=== PATIENT | male | born 1975 | race African-American/Black ===

== ENCOUNTER 2017-01-24 20:06 | Emergency (ER) | payer OTHER ==
[2017-01-24 20:26] VITALS: BP 148/87
--- NOTE | 2017-01-24 20:57 | ER Document Report ---
ED Medical Screen (RME) - General Chief Complaint: Chest Pain Stated Complaint: CHEST PAIN, SHORT OF BREATH Time seen by provider: 20:55 Mode of Arrival: Wheelchair Information source: Patient Notes: 42-year-old male presents to ED for chest pain since about 2:00 with fever and vomiting blood after an endoscopy today. He's also had chills and shortness of breath with a copper taste in his mouth. He states he had the endoscopy at 2: [address] home he started feeling the chest pain. He states he vomited the blood just before coming to the emergency room and it was enough to spackle the toilet. Patient states she was told they did a few biopsies during the endoscopy. He was diagnosed with GERd and hiatal hernia. I have greeted and performed a rapid initial assessment of this patient. A comprehensive ED assessment and evaluation of the patient, analysis of test results and completion of medical decision making process will be conducted by an additional ED providers. TRAVEL OUTSIDE OF THE [place] IN LAST 30 DAYS: No - Related Data Allergies/Adverse Reactions: rimantadine HCl [From Flumadine] Allergy (Unknown, Verified 10/26/16 09:43) Past Medical History - Past Medical History Cardiac Medical History: Reports: Hx Hypercholesterolemia, Hx Hypertension Endocrine Medical History: Reports: Hx Diabetes Mellitus Type 2 GI Medical History: Reports: Hx Gastroesophageal Reflux Disease, Hx Irritable Bowel Musculoskeltal Medical History: Reports Hx Arthritis, Reports Hx Gout, Reports Hx Musculoskeletal Deformity, Reports Hx Musculoskeletal Trauma Past Surgical History: Reports: Hx Orthopedic Surgery - right knee - Immunizations Hx Diphtheria, Pertussis, Tetanus Vaccination: No Physical Exam - Vital signs Vitals: Temp Pulse Resp BP Pulse Ox 99.8 F 112 H 16 148/87 H 98 01/24/17 20:25 01/24/17 20:25 01/24/17 20:25 01/24/17 20:25 01/24/17 20:25 Course - Vital Signs Vital signs: Temp Pulse Resp BP Pulse Ox 99.8 F 112 H 16 148/87 H 98 01/24/17 20:25 01/24/17 20:25 01/24/17 20:25 01/24/17 20:25 01/24/17 20:25
[2017-01-24 21:55] LABS: ABSOLUTE BASOPHILS # (AUTO) 0.1 10^3/uL (0.0-0.2); ABSOLUTE EOSINOPHILS # (AUTO) 0.2 10^3/uL (0.0-0.6); ABSOLUTE MONOCYTES (AUTO) 0.6 10^3/uL (0.1-1.4); ABSOLUTE NEUT (AUTO) 5.4 10^3/uL (1.7-8.2); BASOPHILS % (AUTO) 1.1 % (0-2); EOSINOPHILS % (AUTO) 2.6 % (0-6); HEMATOCRIT 40.2 % (37.9-51.0); HEMOGLOBIN 13.4 g/dL (13.5-17.0); LYMPHOCYTES % (AUTO) 13.5 % (13-45); MEAN CORPUSCULAR HEMOGLOBIN 27.6 pg (27.0-33.4); MEAN CORPUSCULAR HGB CONC 33.4 g/dL (32.0-36.0); MEAN CORPUSCULAR VOLUME 83 fl (80-97); MONOCYTES % (AUTO) 8.5 % (3-13); RED BLOOD COUNT 4.85 10^6/uL (4.35-5.55); RED CELL DISTRIBUTION WIDTH 15.5 % (11.5-14.0); SEGMENTED NEUTROPHILS % (AUTO) 74.3 % (42-78); WHITE BLOOD COUNT 7.2 10^3/uL (4.0-10.5)
[2017-01-24 22:12] LABS: ALANINE AMINOTRANSFERASE 25 U/L (21-72); ALBUMIN 4.1 g/dL (3.5-5.0); ALKALINE PHOSPHATASE 74 U/L (38-126); ANION GAP 12 (5-19); ASPARTATE AMINO TRANSFERASE 41 U/L (17-59); BILIRUBIN,TOTAL 0.5 mg/dL (0.2-1.3); BLOOD UREA NITROGEN 9 mg/dL (7-20); CALCIUM 8.3 mg/dL (8.4-10.2); CARBON DIOXIDE 25 mmol/L (22-30); CHLORIDE 102 mmol/L (98-107); CREATINE KINASE 370 U/L (55-170); CREATININE RESULT 1.05 mg/dL (0.52-1.25); GLUCOSE 115 mg/dL (75-110); POTASSIUM 3.2 mmol/L (3.6-5.0); SODIUM 139.4 mmol/L (137-145); TOTAL PROTEIN 7.3 g/dL (6.3-8.2)
[2017-01-24 22:24] LABS: CREATINE KINASE MB 1.03 ng/mL (<4.55)
[2017-01-24 22:35] LABS: TROPONIN I < 0.012 ng/mL
== END 2017-01-24 22:30 | disposition left against medical advice (07) ==
LOC: ER 20:06
DX: K21.9 Gastro-esophageal reflux disease without esophagitis (principal); K44.9 Diaphragmatic hernia without obstruction or gangrene; R07.9 Chest pain, unspecified; R06.02 Shortness of breath; R50.9 Fever, unspecified; K92.0 Hematemesis; Z98.890 Other specified postprocedural states; I10 Essential (primary) hypertension; E11.9 Type 2 diabetes mellitus without complications; Z88.3 Allergy status to other anti-infective agents; Z53.20 Procedure and treatment not carried out because of patient's decision for unspecified reasons
CPT/HCPCS: 36415; 80053; 82550; 82553; 84484; 85025; 86850; 86900; 86901; 99281

== ENCOUNTER 2017-02-11 13:29 | Emergency (ER) | payer OTHER ==
[2017-02-11 13:46] VITALS: BP 159/94
--- NOTE | 2017-02-11 14:31 | ER Document Report ---
ED Extremity Problem, Upper - General Chief Complaint: Hand Swelling Stated Complaint: FINGER PAIN Time seen by provider: 14:00 Mode of Arrival: Ambulatory Information source: Patient Notes: 42-year-old male presents to ED for complaint of pain and swelling to the right hand mostly the right first and second finger. He has a history of gout diabetes and renal insufficiency. He denies any injuries. TRAVEL OUTSIDE OF THE [place] IN LAST 30 DAYS: No - HPI Patient complains to provider of: Pain, Swelling, Right, Hand Onset: Other Recent injury: No Quality of pain: Burning, Sharp Severity of pain: Moderate Pain Level: 4 Associated symptoms: None Exacerbated by: Movement, Exertion Relieved by: Rest, Positioning Similar symptoms previously: Yes Recently seen / treated by doctor: No - Related Data Allergies/Adverse Reactions: rimantadine HCl [From Flumadine] Allergy (Unknown, Verified 10/26/16 09:43) Past Medical History - Social History Smoking Status: Unknown if Ever Smoked Frequency of alcohol use: Social Drug Abuse: None Lives with: Family Family History: Arthritis, DM, Hyperlipidemia, Hypertension Patient has suicidal ideation: No Patient has homicidal ideation: No - Past Medical History Cardiac Medical History: Reports: Hx Hypercholesterolemia, Hx Hypertension Pulmonary Medical History: Reports: None EENT Medical History: Reports: None Neurological Medical History: Reports: None Endocrine Medical History: Reports: Hx Diabetes Mellitus Type 2 Renal/ Medical History: Reports: Hx Renal Insufficiency Malignancy Medical History: Reports None GI Medical History: Reports: Hx Gastroesophageal Reflux Disease, Hx Irritable Bowel Musculoskeltal Medical History: Reports Hx Arthritis, Reports Hx Gout, Reports Hx Musculoskeletal Deformity, Reports Hx Musculoskeletal Trauma Skin Medical History: Reports None Psychiatric Medical History: Reports: None Traumatic Medical History: Reports: None Infectious Medical History: Reports: None Past Surgical History: Reports: Hx Orthopedic Surgery - right knee - Immunizations Hx Diphtheria, Pertussis, Tetanus Vaccination: No Hx Pneumococcal Vaccination: 06/13/14 Review of Systems - Review of Systems Constitutional: No symptoms reported EENT: No symptoms reported Cardiovascular: No symptoms reported Respiratory: No symptoms reported Gastrointestinal: No symptoms reported Genitourinary: No symptoms reported Male Genitourinary: No symptoms reported Musculoskeletal: Gout - Right hand and first and second finger Skin: No symptoms reported Hematologic/Lymphatic: No symptoms reported Neurological/Psychological: No symptoms reported Physical Exam - Vital signs Vitals: Temp Pulse Resp BP Pulse Ox 98.4 F 95 18 159/94 H 96 02/11/17 13:45 02/11/17 13:45 02/11/17 13:45 02/11/17 13:45 02/11/17 13:45 Interpretation: Normal - General General appearance: Appears well, Alert - HEENT Head: Normocephalic, Atraumatic Eyes: Normal Pupils: PERRL - Respiratory Respiratory status: No respiratory distress Chest status: Nontender Breath sounds: Normal Chest palpation: Normal - Cardiovascular Rhythm: Regular Heart sounds: Normal auscultation Murmur: No - Abdominal Inspection: Normal Distension: No distension Bowel sounds: Normal Tenderness: Nontender Organomegaly: No organomegaly - Back Back: Normal, Nontender - Extremities General upper extremity: Normal temperature General lower extremity: Normal inspection, Nontender, Normal color, Normal ROM , Normal temperature, Normal weight bearing. No: Chrystal's sign Hand: Tender, No evidence of human bite, No evidence of FB, Swelling, Other - Right hand first and second finger erythema swelling tender. Decreased range of motion to the first and second finger due to pain. - Neurological Neuro grossly intact: Yes Cognition: Normal Orientation: AAOx4 [place] Coma Scale Eye Opening: Spontaneous [place] Coma Scale Verbal: Oriented [place] Coma Scale Motor: Obeys Commands [place] Coma Scale Total: 15 Speech: Normal Motor strength normal: LUE, RUE, LLE, RLE Sensory: Normal - Psychological Associated symptoms: Normal affect, Normal mood - Skin Skin Temperature: Warm Skin Moisture: Dry Skin Color: Normal Course - Vital Signs Vital signs: Temp Pulse Resp BP Pulse Ox 98.4 F 95 18 159/94 H 96 02/11/17 13:45 02/11/17 13:45 02/11/17 13:45 02/11/17 13:45 02/11/17 13:45 Procedures - Immobilization Right Hand Time completed: 14:41 Pre-Proc Neuro Vasc Exam: Normal Immobilizer type: Cock-up Performed by: PCT Post-Proc Neuro Vasc Exam: Normal Alignment checked and good: Yes Discharge - Discharge Clinical Impression: Acute gout Qualifiers: Gout site: hand Gout etiology: due to renal impairment Laterality: right Qualified Code(s): M10.341 - Gout due to renal impairment, right hand Condition: Stable Disposition: HOME, SELF-CARE Instructions: Family Physicians / Practices Additional Instructions: Gout You have been diagnosed as having gout. Gout is a problem caused by an excess of uric acid, a natural chemical found in the body. The cause of this disease is unknown. Gout arthritis occurs when crystals of uric acid form in the joints. The big toe is the most common joint involved, but any joint can become affected. Persons with gout may also form uric acid kidney stones, resulting in flank pain and blood in the urine. Nodules of uric acid may form under the skin. The first step of treatment is to decrease the inflammation in the joint with antiinflammatory medication. Medication to lower the uric acid level in the blood may then be prescribed. This medication should be taken regularly, as any sudden change in dosage may provoke an attack of gout. Some foods, such as red meat, can provoke an attack in some gout sufferers. Call the doctor if new symptoms arise, or if you do not improve. Gout Diet Changing your diet can decrease the uric acid in your blood. High levels of uric acid cause gouty arthritis and uric acid kidney stones. If you have gout , you should avoid meats that are high in purine. Meat products to avoid include liver, kidneys, and brains. In general, poultry is better than red meats. Seafoods to avoid include anchovies, sardines, cohen, mackerel, and scallops. In addition to limiting purine-rich foods, people with gout should limit protein intake to 10-15% of total calories. Carbohydrate intake should be around 50% of total daily calories. Limit fat intake to 30% of total daily calories. Cholesterol intake should be less than 300 mg/day. Maintain or achieve a healthy body weight. Weight loss should be gradual. Rapid weight loss can actually increase uric acid levels temporarily. Alcohol, especially beer, should be avoided. Get plenty of fluids. This dilutes urinary uric acid, and helps prevent uric acid kidney stones. Drink eight to twelve cups of water daily. Anti-Inflammatory Medication You have received a prescription for an antiinflammatory agent. This is an excellent, safe drug for pain control. In addition, it has potent antiinflammatory effects which are beneficial, especially in the treatment of injuries, arthritis, or tendonitis. It's best to take this medicine with food. Persons with ulcer disease or allergy to aspirin should notify their physician of this before taking this drug. Take the medication exactly as prescribed. Don't take additional doses unless instructed to do so by your doctor. If you develop wheezing, shortness of breath, hives, faintness, stomach pain, vomiting, or dark black stools, return for re-evaluation at once. FOLLOW-UP CARE: If you have been referred to a physician for follow-up care, call the physician s office for an appointment as you were instructed or within the next two days. If you experience worsening or a significant change in your symptoms, notify the physician immediately or return to the Emergency Department at any time for re-evaluation. Prescriptions: Naproxen 500 mg PO DAILY #20 tablet Forms: Elevated Blood Pressure, Return to Work
== END 2017-02-11 14:41 | disposition home or self-care (01) ==
LOC: ER 13:29
PROC: 2W3EX1Z Immobilization of Right Hand using Splint (ICD-10-PCS; principal; 2017-02-11)
DX: M10.341 Gout due to renal impairment, right hand (principal); M79.89 Other specified soft tissue disorders; M79.644 Pain in right finger(s)
CPT/HCPCS: 99283; 29125; L3984

== ENCOUNTER 2017-04-27 09:43 | Emergency (ER) | payer OTHER ==
[2017-04-27] MEDS ORDERED: IPRATROPIUM/ALBUTEROL 0.5-2.5 MG/3 ML AMPUL NEB ONE (10:06)
[2017-04-27] MEDS ORDERED: ASPIRIN 81 MG TABLET, CHEWABLE PO ONE (10:06)
--- NOTE | 2017-04-27 10:09 | ER Document Report ---
HPI - HPI Patient complains to provider of: cough Onset: Other - 3 wks Onset/Duration: Persistent Quality of pain: Pressure Pain Level: 3 Context: Pt complains of nonproductive cough for the past 3 weeks. Patient states that he is since developed chest pressure with coughing only. Patient states that if he is not coughing he does not have any chest pressure. Patient denies any recent travel or immobilization. Patient does report occasional shortness of breath. Patient denies any fever. Associated Symptoms: Chest pain - with cough, Nonproductive cough, Shortness of breath. denies: Fever, Nausea, Vomiting, Rhinnorhea Exacerbated by: Coughing Relieved by: Remaining still Similar symptoms previously: No Recently seen / treated by doctor: No - ROS ROS below otherwise negative: Yes Systems Reviewed and Negative: Yes All other systems reviewed and negative - CONSTITUTIONAL Constitutional: DENIES: Fever - EENT EENT: DENIES: Sore Throat - NEURO Neurology: DENIES: Headache - CARDIOVASCULAR Cardiovascular: REPORTS: Chest pain - RESPIRATORY Respiratory: REPORTS: Coughing. DENIES: Trouble Breathing - GASTROINTESTINAL Gastrointestinal: DENIES: Abdominal Pain, Nausea, Patient vomiting - REPRODUCTIVE Reproductive: DENIES: : - MUSCULOSKELETAL Musculoskeletal: DENIES: Extremity pain, Back Pain - DERM Skin Color: Normal Skin Problems: None Past Medical History - General Information source: Patient - Social History Smoking Status: Never Smoker Frequency of alcohol use: Occasional Drug Abuse: None Occupation: none Lives with: Family Family History: Arthritis, DM, Hyperlipidemia, Hypertension Patient has suicidal ideation: No Patient has homicidal ideation: No - Past Medical History Cardiac Medical History: Reports: Hx Hypercholesterolemia, Hx Hypertension Endocrine Medical History: Reports: Hx Diabetes Mellitus Type 2 Renal/ Medical History: Reports: Hx Renal Insufficiency. Denies: Hx Peritoneal Dialysis GI Medical History: Reports: Hx Gastroesophageal Reflux Disease, Hx Irritable Bowel Musculoskeltal Medical History: Reports Hx Arthritis, Reports Hx Gout, Reports Hx Musculoskeletal Deformity, Reports Hx Musculoskeletal Trauma Past Surgical History: Reports: Hx Orthopedic Surgery - right knee - Immunizations Hx Diphtheria, Pertussis, Tetanus Vaccination: No Hx Pneumococcal Vaccination: 06/13/14 Vertical Provider Document - CONSTITUTIONAL Agree With Documented VS: Yes Exam Limitations: No Limitations General Appearance: WD/WN, No Apparent Distress - INFECTION CONTROL TRAVEL OUTSIDE OF THE [place] IN LAST 30 DAYS: No - HEENT HEENT: Atraumatic, Normocephalic - NECK Neck: Normal Inspection, Supple - RESPIRATORY Respiratory: No Respiratory Distress, Other - Occasional dry cough. negative: Chest Non-Tender - Chest wall tenderness reproduced with coughing only O2 Sat by Pulse Oximetry: 99 - CARDIOVASCULAR Cardiovascular: Regular Rate, Regular Rhythm, No Murmur - GI/ABDOMEN Gastrointestinal: Abdomen Soft, Abdomen Non-Tender Notes: obese - BACK Back: Normal Inspection - MUSCULOSKELETAL/EXTREMETIES Musculoskeletal/Extremeties: GUILLERMO FREEMAN - NEURO Level of Consciousness: Awake, Alert, Appropriate Motor/Sensory: No Motor Deficit - DERM Integumentary: Warm, Dry, No Rash Course - Re-evaluation Re-evalutation: 04/27/17 10:26 Pt reports he forgot to take his lisinopril at home today. 04/27/17 11:54 Resting comfortably, denies any chest pain at this time. Consulted with Dr. Esteves regarding patient presentation, diagnostic tests reviewed as well as EKG. Dr. Esteves recommends repeating troponin as well as EKG and getting IV fluids to hydrate patient. 04/27/17 15:08 Respirations even, unlabored. Patient with occasional nonproductive cough. Patient denies any chest pain at this time. Consulted again with Dr. Esteves regarding patient's repeat troponin as well as EKG. No additional testing recommended at this time, does recommend outpatient follow-up with primary doctor for recheck. Patient advised of importance of need for follow-up as well as follow-up with dictaphone typist. Patient also notified of abnormal potassium as well as liver function test and need for repeat on an outpatient basis. Patient's chest pain symptoms seem pleuritic in nature, patient's initial tachycardia resolved at this time and blood pressure improved after being given his dose of his usual blood pressure medication. The patient has atypical chest pain as the patient's chest pain is not suggestive of pulmonary embolus, cardiac ischemia, aortic dissection, or other serious etiology. Given the extremely low risk of these diagnoses for the test in evaluation for these possibilities does not appear to be indicated at this time. Patient has been instructed to return if the symptoms worsen or change in any way. 04/27/17 15:13 The patient has been informed that they may have pre-hypertension or hypertension based on a blood pressure reading in the emergency department. I recommend that patient call the primary care provider listed on their discharge instructions or a physician of their choice by this week to arrange follow-up for further evaluation of possible pre-hypertension her hypertension. - Vital Signs Vital signs: Temp Pulse Resp BP Pulse Ox 98.4 F 103 H 24 H 157/101 H 99 04/27/17 09:46 04/27/17 09:46 04/27/17 09:46 04/27/17 09:46 04/27/17 09:46 - Laboratory Result Diagrams: 04/27/17 10:15 04/27/17 10:15 - Diagnostic Test Radiology reviewed: Reports reviewed Discharge - Discharge Clinical Impression: Cough, Chest pain of uncertain etiology, Hypokalemia, Abnormal liver function test, Hx of essential hypertension Condition: Stable Disposition: HOME, SELF-CARE Instructions: Chest Pain of Unclear Cause ([facility]), Bronchitis ([facility]), Inhaled Bronchodilators ([facility]), Hypokalemia ([facility]), Liver Function Abnormality ([facility]) Additional Instructions: Return immediately for any new or worsening symptoms Followup with your primary care provider, call tomorrow to make a followup appointment You need to follow-up with a dictaphone typist on an outpatient basis for further evaluation, call your doctor to make a referral on Sunday. Your potassium level was low and 1 of your liver function test was a little bit elevated today. Increase foods rich in potassium in your diet. Avoid any Tylenol or alcohol products until your doctor tells you that it is okay to resume. You will need to have a repeat chemistry panel, have your doctor check this next week. Prescriptions: Albuterol Sulfate [Ventolin Hfa] 2 puff IH Q4HP PRN #17 gm PRN Reason: Benzonatate [Tessalon Perle 100 mg Capsule] 100 mg PO Q8HP PRN #20 cap PRN Reason: Forms: Elevated Blood Pressure Referrals: SHASHANK SOTELO FNP [Primary Care Provider] - 04/30/17
[2017-04-27] MEDS ORDERED: LISINOPRIL 10 MG TABLET PO ONE (10:25)
[2017-04-27 10:28] LABS: ABSOLUTE BASOPHILS # (AUTO) 0.1 10^3/uL (0.0-0.2); ABSOLUTE EOSINOPHILS # (AUTO) 0.7 10^3/uL (0.0-0.6); ABSOLUTE LYMPHOCYTES (AUTO) 1.7 10^3/uL (0.5-4.7); ABSOLUTE MONOCYTES (AUTO) 0.6 10^3/uL (0.1-1.4); ABSOLUTE NEUT (AUTO) 3.5 10^3/uL (1.7-8.2); BASOPHILS % (AUTO) 1.3 % (0-2); EOSINOPHILS % (AUTO) 9.9 % (0-6); HEMATOCRIT 41.1 % (37.9-51.0); HEMOGLOBIN 13.6 g/dL (13.5-17.0); HGB HCT DIFFERENCE -0.3; LYMPHOCYTES % (AUTO) 25.9 % (13-45); MEAN CORPUSCULAR HEMOGLOBIN 28.1 pg (27.0-33.4); MEAN CORPUSCULAR HGB CONC 33.2 g/dL (32.0-36.0); MEAN CORPUSCULAR VOLUME 85 fl (80-97); MONOCYTES % (AUTO) 9.8 % (3-13); RED BLOOD COUNT 4.86 10^6/uL (4.35-5.55); SEGMENTED NEUTROPHILS % (AUTO) 53.1 % (42-78); WHITE BLOOD COUNT 6.6 10^3/uL (4.0-10.5)
[2017-04-27 10:40] LABS: ALANINE AMINOTRANSFERASE 42 U/L (21-72); ALBUMIN 4.2 g/dL (3.5-5.0); ALKALINE PHOSPHATASE 99 U/L (38-126); ANION GAP 14 (5-19); ASPARTATE AMINO TRANSFERASE 73 U/L (17-59); BILIRUBIN,DIRECT 0.3 mg/dL (0.0-0.4); BILIRUBIN,TOTAL 0.5 mg/dL (0.2-1.3); BLOOD UREA NITROGEN 7 mg/dL (7-20); CARBON DIOXIDE 23 mmol/L (22-30); CHLORIDE 104 mmol/L (98-107); CREATINE KINASE 738 U/L (55-170); CREATININE RESULT 0.69 mg/dL (0.52-1.25); GLUCOSE 148 mg/dL (75-110); LIPASE 84.8 U/L (23-300); POTASSIUM 3.4 mmol/L (3.6-5.0); SODIUM 141.3 mmol/L (137-145); TOTAL PROTEIN 7.6 g/dL (6.3-8.2)
[2017-04-27 10:51] LABS: CREATINE KINASE MB 3.75 ng/mL (<4.55)
[2017-04-27 10:54] LABS: TROPONIN I < 0.012 ng/mL
--- NOTE | 2017-04-27 11:28 | RADIOLOGY REPORT (SQ) ---
EXAM DESCRIPTION: CHEST PA/LAT COMPLETED DATE/TIME: 04/27/2017 10:59 am REASON FOR STUDY: cough, cp COMPARISON: None. EXAM PARAMETERS: NUMBER OF VIEWS: two views TECHNIQUE: Digital Frontal and Lateral radiographic views of the chest acquired. RADIATION DOSE: NA LIMITATIONS: none FINDINGS: LUNGS AND PLEURA: No opacities, masses or pneumothorax. No pleural effusion. MEDIASTINUM AND HILAR STRUCTURES: No masses or contour abnormalities. HEART AND VASCULAR STRUCTURES: The configuration of the heart and mediastinal structures is unchanged BONES: No acute findings. HARDWARE: None in the chest. OTHER: No other significant finding. IMPRESSION: NO SIGNIFICANT RADIOGRAPHIC FINDING IN THE CHEST. TECHNICAL DOCUMENTATION: JOB ID: [id number] [employer]- All Rights Reserved
[2017-04-27] MEDS ORDERED: POTASSIUM CHLORIDE 10 MEQ TABLET.SA PO ONE (11:52)
[2017-04-27] MEDS ORDERED: NORMAL SALINE 1000 ML 1,000 ML IV ONE (11:52)
[2017-04-27 15:29] VITALS: BP 138/91
--- NOTE | 2017-04-27 17:54 | EKG REPORT ---
SEVERITY:- ABNORMAL ECG - SINUS TACHYCARDIA VENT PREEXCITATION, LEFT ACCESSORY PATHWAY : Confirmed by: Murtaza Real 27-Apr-2017 17:54:19
--- NOTE | 2017-04-27 17:54 | EKG REPORT ---
SEVERITY:- ABNORMAL ECG - SINUS RHYTHM VENT PREEXCITATION, LEFT ACCESSORY PATHWAY : Confirmed by: Murtaza Real 27-Apr-2017 17:53:55
== END 2017-04-27 15:28 | disposition home or self-care (01) ==
LOC: ER 09:43
DX: R05 Cough (principal); R07.9 Chest pain, unspecified; E87.6 Hypokalemia; R94.5 Abnormal results of liver function studies; I10 Essential (primary) hypertension; R06.02 Shortness of breath; E78.00 Pure hypercholesterolemia, unspecified; E11.9 Type 2 diabetes mellitus without complications; N28.9 Disorder of kidney and ureter, unspecified
CPT/HCPCS: 93005; 94640 ×2; 99284; 96360; 36415; 82553; 82550; 83690; 85025; 80053; 84484; 71020; 93010; J7030; J7620

== ENCOUNTER 2017-05-03 13:01 | Emergency (ER) | payer OTHER ==
--- NOTE | 2017-05-03 13:58 | ER Document Report ---
ED Medical Screen (RME) - General Chief Complaint: Cough Stated Complaint: COUGH Time Seen by Provider: 05/03/17 13:49 Notes: Patient says that he has had a persistent cough with difficulty breathing now for about 1 month. He was seen here last Sunday and treated with an albuterol inhaler and cough medication. Has no history of any lung condition such as asthma or COPD. Non-smoker. No history of any blood clots. No history of exposure to unusual pulmonary diseases such as pertussis, etc. History of hypertension, high cholesterol, gout, diabetes on pills and insulin as needed. No history of heart disease. TRAVEL OUTSIDE OF THE [place] IN LAST 30 DAYS: No - Related Data Allergies/Adverse Reactions: rimantadine HCl [From Flumadine] Allergy (Unknown, Verified 05/03/17 13:09) Past Medical History - Social History Frequency of alcohol use: Rare Drug Abuse: None - Past Medical History Cardiac Medical History: Reports: Hx Hypercholesterolemia, Hx Hypertension Endocrine Medical History: Reports: Hx Diabetes Mellitus Type 2 Renal/ Medical History: Reports: Hx Renal Insufficiency. Denies: Hx Peritoneal Dialysis GI Medical History: Reports: Hx Gastroesophageal Reflux Disease, Hx Irritable Bowel Musculoskeltal Medical History: Reports Hx Arthritis, Reports Hx Gout, Reports Hx Musculoskeletal Deformity, Reports Hx Musculoskeletal Trauma Past Surgical History: Reports: Hx Orthopedic Surgery - right knee - Immunizations Hx Diphtheria, Pertussis, Tetanus Vaccination: No Physical Exam - Vital signs Vitals: Temp Pulse Resp BP Pulse Ox 98.6 F 101 H 16 175/110 H 97 05/03/17 13:09 05/03/17 13:09 05/03/17 13:09 05/03/17 13:09 05/03/17 13:09 Course - Vital Signs Vital signs: Temp Pulse Resp BP Pulse Ox 98.6 F 101 H 16 175/110 H 97 05/03/17 13:09 05/03/17 13:09 05/03/17 13:09 05/03/17 13:09 05/03/17 13:09
--- NOTE | 2017-05-03 14:18 | RADIOLOGY REPORT (SQ) ---
EXAM DESCRIPTION: CHEST PA/LAT COMPLETED DATE/TIME: 05/03/2017 2:10 pm REASON FOR STUDY: Persistent cough for 1 month COMPARISON: 04/27/2017 EXAM PARAMETERS: NUMBER OF VIEWS: two views TECHNIQUE: Digital Frontal and Lateral radiographic views of the chest acquired. RADIATION DOSE: NA LIMITATIONS: none FINDINGS: LUNGS AND PLEURA: No opacities, masses or pneumothorax. No pleural effusion. MEDIASTINUM AND HILAR STRUCTURES: No masses or contour abnormalities. HEART AND VASCULAR STRUCTURES: Heart normal size. No evidence for failure. BONES: No acute findings. HARDWARE: None in the chest. OTHER: No other significant finding. IMPRESSION: NO SIGNIFICANT RADIOGRAPHIC FINDING IN THE CHEST. TECHNICAL DOCUMENTATION: JOB ID: [id number] [employer]- All Rights Reserved
[2017-05-03 14:43] LABS: ABSOLUTE BASOPHILS # (AUTO) 0.1 10^3/uL (0.0-0.2); ABSOLUTE EOSINOPHILS # (AUTO) 0.5 10^3/uL (0.0-0.6); ABSOLUTE MONOCYTES (AUTO) 0.7 10^3/uL (0.1-1.4); ABSOLUTE NEUT (AUTO) 6.4 10^3/uL (1.7-8.2); BASOPHILS % (AUTO) 1.1 % (0-2); EOSINOPHILS % (AUTO) 4.8 % (0-6); HEMATOCRIT 40.9 % (37.9-51.0); HEMOGLOBIN 13.7 g/dL (13.5-17.0); HGB HCT DIFFERENCE 0.2; LYMPHOCYTES % (AUTO) 20.2 % (13-45); MEAN CORPUSCULAR HGB CONC 33.5 g/dL (32.0-36.0); MEAN CORPUSCULAR VOLUME 84 fl (80-97); MONOCYTES % (AUTO) 7.7 % (3-13); RED BLOOD COUNT 4.89 10^6/uL (4.35-5.55); RED CELL DISTRIBUTION WIDTH 16.1 % (11.5-14.0); SEGMENTED NEUTROPHILS % (AUTO) 66.2 % (42-78); WHITE BLOOD COUNT 9.7 10^3/uL (4.0-10.5)
[2017-05-03 14:56] LABS: APPEARANCE,URINE CLEAR; BILIRUBIN,URINE NEGATIVE (NEGATIVE); GLUCOSE, URINE NEGATIVE (NEGATIVE); KETONES,URINE NEGATIVE (NEGATIVE); LEUKOCYTE ESTERASE,URINE NEGATIVE (NEGATIVE); NITRITE,URINE NEGATIVE (NEGATIVE); PROTEIN,URINE NEGATIVE (NEGATIVE); URINE SPECIFIC GRAVITY 1.017; UROBILINOGEN,URINE NEGATIVE mg/dL (<2.0)
[2017-05-03 15:02] LABS: ALANINE AMINOTRANSFERASE 35 U/L (21-72); ALBUMIN 4.2 g/dL (3.5-5.0); ALKALINE PHOSPHATASE 104 U/L (38-126); ANION GAP 16 (5-19); ASPARTATE AMINO TRANSFERASE 57 U/L (17-59); BILIRUBIN,DIRECT 0.4 mg/dL (0.0-0.4); BILIRUBIN,TOTAL 0.5 mg/dL (0.2-1.3); BLOOD UREA NITROGEN 6 mg/dL (7-20); CALCIUM 8.9 mg/dL (8.4-10.2); CARBON DIOXIDE 26 mmol/L (22-30); CHLORIDE 102 mmol/L (98-107); CREATININE RESULT 0.71 mg/dL (0.52-1.25); GLUCOSE 133 mg/dL (75-110); POTASSIUM 3.3 mmol/L (3.6-5.0); SODIUM 143.8 mmol/L (137-145); TOTAL PROTEIN 8.1 g/dL (6.3-8.2)
--- NOTE | 2017-05-03 16:07 | ER Document Report ---
ED Respiratory Problem - General Chief Complaint: Cough Stated Complaint: COUGH Time Seen by Provider: 05/03/17 13:49 Mode of Arrival: Ambulatory Information source: Patient TRAVEL OUTSIDE OF THE [place] IN LAST 30 DAYS: No - HPI Patient complains to provider of: Chest pain - STERNAL, ONLY W/ COUGH, Cough Onset: Other - 1 MONTH Duration: Intermittent episodes - FREQUENT, DAILY Quality of pain: Other - SORENESS Severity: Moderate Context: Other - TAKING LISINOPRIL. denies: DVT, Hx asthma, Hx CHF, Hx COPD, Smoker Chest pain/discomfort: Center Cough: Nonproductive Sputum amount: None Associated symptoms: None, Chest pain/discomfort. denies: Chills, Extertional dyspnea, Fever, Heart racing, Short of breath, Sweaty, Wheezing - Related Data Allergies/Adverse Reactions: rimantadine HCl [From Flumadine] Allergy (Unknown, Verified 05/03/17 13:09) Past Medical History - Social History Smoking Status: Never Smoker Cigarette use (# per day): No Chew tobacco use (# tins/day): No Smoking Education Provided: No Frequency of alcohol use: Rare Drug Abuse: None Family History: Arthritis, DM, Hyperlipidemia, Hypertension Patient has suicidal ideation: No Patient has homicidal ideation: No - Past Medical History Cardiac Medical History: Reports: Hx Hypercholesterolemia, Hx Hypertension Endocrine Medical History: Reports: Hx Diabetes Mellitus Type 2 Renal/ Medical History: Reports: Hx Renal Insufficiency. Denies: Hx Peritoneal Dialysis GI Medical History: Reports: Hx Gastroesophageal Reflux Disease, Hx Irritable Bowel Musculoskeltal Medical History: Reports Hx Arthritis, Reports Hx Gout, Reports Hx Musculoskeletal Deformity, Reports Hx Musculoskeletal Trauma Past Surgical History: Reports: Hx Orthopedic Surgery - right knee - Immunizations Hx Diphtheria, Pertussis, Tetanus Vaccination: No Hx Pneumococcal Vaccination: 06/13/14 Review of Systems - Review of Systems Constitutional: No symptoms reported. denies: Weight loss EENT: No symptoms reported Cardiovascular: No symptoms reported Respiratory: See HPI Gastrointestinal: No symptoms reported Genitourinary: No symptoms reported Musculoskeletal: No symptoms reported Skin: No symptoms reported Neurological/Psychological: No symptoms reported Physical Exam - Vital signs Vitals: Temp Pulse Resp BP Pulse Ox 98.6 F 101 H 16 175/110 H 97 05/03/17 13:09 05/03/17 13:09 05/03/17 13:09 05/03/17 13:09 05/03/17 13:09 Interpretation: Hypertensive, Tachycardic. No: Tachypneic, Febrile - General General appearance: Appears well, Alert In distress: None - HEENT Head: Normocephalic Eyes: Normal Conjunctiva: Normal Ears: Normal Nasal: Normal Mouth/Lips: Normal Mucous membranes: Normal Pharynx: Normal Neck: Normal - Respiratory Respiratory status: No respiratory distress, Other - FREQUENT DRY COUGH Breath sounds: Normal - Cardiovascular Rhythm: Regular Heart sounds: Normal auscultation Murmur: No - Abdominal Inspection: Normal Bowel sounds: Normal - Back Back: Normal - Extremities General upper extremity: Normal inspection General lower extremity: Normal inspection - Neurological Neuro grossly intact: Yes Cognition: Normal Orientation: AAOx4 - Psychological Associated symptoms: Normal affect, Normal mood - Skin Skin Temperature: Warm Skin Moisture: Dry Skin Color: Normal Skin Turgor: Elastic Course - Vital Signs Vital signs: Temp Pulse Resp BP Pulse Ox 98.6 F 101 H 16 175/110 H 97 05/03/17 13:09 05/03/17 13:09 05/03/17 13:09 05/03/17 13:09 05/03/17 13:09 - Laboratory Result Diagrams: 05/03/17 14:20 05/03/17 14:20 Laboratory results interpreted by me: 05/03/17 05/03/17 14:20 14:20 RDW 16.1 H Potassium 3.3 L BUN 6 L Glucose 133 H - Diagnostic Test Radiology reviewed: Image reviewed, Reports reviewed Discharge - Discharge Clinical Impression: Cough due to SAHIL inhibitor, Hx of essential hypertension Condition: Stable Disposition: HOME, SELF-CARE Additional Instructions: STOP TAKING YOUR LISINOPRIL. TAKE AMLODIPINE DIRECTED, INSTEAD OF LISINOPRIL. YOU MAY TAKE TESSALON (BENZONATATE) IF NEEDED FOR SUPPRESSION OF COUGH. CONTINUE ALL OTHER MEDS BEFORE. FOLLOW UP WITH YOUR PRIMARY CARE PROVIDER EARLY NEXT WEEK FOR BLOOD PRESSURE RE- CHECK. Prescriptions: Benzonatate [Tessalon Perles 100 mg Capsule] 100 mg PO Q8HP PRN #20 capsule PRN Reason: Amlodipine Besylate 5 mg PO Q12H #20 tablet
[2017-05-03 16:45] VITALS: BP 151/100
== END 2017-05-03 16:47 | disposition home or self-care (01) ==
LOC: ER 13:01
DX: R05 Cough (principal); T44.5X5A Adverse effect of predominantly beta-adrenoreceptor agonists, initial encounter; R07.89 Other chest pain; R00.0 Tachycardia, unspecified; I10 Essential (primary) hypertension; E11.9 Type 2 diabetes mellitus without complications; Z88.3 Allergy status to other anti-infective agents
CPT/HCPCS: 36415; 71020; 80053; 81001; 85025; 85379; 87070; 87205; 99283

== ENCOUNTER 2017-05-14 20:04 | Emergency (ER) | payer OTHER ==
[2017-05-14 20:30] VITALS: BP 140/111
--- NOTE | 2017-05-14 20:38 | ER Document Report ---
ED Respiratory Problem - General Chief Complaint: Cough Stated Complaint: COUGH,STOMACH PAIN Time Seen by Provider: 05/14/17 20:28 Notes: The patient is a 42-year-old male, past medical history GERD, chronic cough, history of alcoholism, diabetes, hypertension, presents with 6 weeks of intermittent dry cough throughout the day. He has had 2 ER visits for this and seen his primary care physician at the [facility] multiple times. He has not seen a behavioral pediatrician yet. He has tried stopping his lisinopril, Tessalon Perles, honey , albuterol, steroids (raised his sugars very high) and PPIs without much relief of his symptoms. He never smoked. He has also only having epigastric pain when he coughs. Denies syncope, leg swelling, hemoptysis, sputum, nausea, vomiting, fevers or rash. TRAVEL OUTSIDE OF THE [place] IN LAST 30 DAYS: No - Related Data Allergies/Adverse Reactions: No Known Allergies Allergy (Unverified 05/14/17 20:40) Past Medical History - General Information source: Patient - Social History Smoking Status: Never Smoker Family History: Arthritis, DM, Hyperlipidemia, Hypertension Patient has suicidal ideation: No Patient has homicidal ideation: No - Past Medical History Cardiac Medical History: Reports: Hx Hypercholesterolemia, Hx Hypertension Endocrine Medical History: Reports: Hx Diabetes Mellitus Type 2 Renal/ Medical History: Reports: Hx Renal Insufficiency. Denies: Hx Peritoneal Dialysis GI Medical History: Reports: Hx Gastroesophageal Reflux Disease, Hx Irritable Bowel Musculoskeltal Medical History: Reports Hx Arthritis, Reports Hx Gout, Reports Hx Musculoskeletal Deformity, Reports Hx Musculoskeletal Trauma Past Surgical History: Reports: Hx Orthopedic Surgery - right knee - Immunizations Hx Diphtheria, Pertussis, Tetanus Vaccination: No Hx Pneumococcal Vaccination: 06/13/14 Review of Systems - Review of Systems Notes: REVIEW OF SYSTEMS: CONSTITUTIONAL: -fevers, -chills EENT: -eye pain, -difficulty swallowing, -nasal congestion CARDIOVASCULAR:-chest pain, -syncope. RESPIRATORY: +cough, -SOB GASTROINTESTINAL: +epigastric abdominal pain, -nausea, -vomiting, -diarrhea GENITOURINARY: -dysuria, -hematuria MUSCULOSKELETAL: -back pain, -neck pain SKIN: -rash or skin lesions. HEMATOLOGIC: -easy bruising or bleeding. LYMPHATIC: -swollen, enlarged glands. NEUROLOGICAL: -altered mental status or loss of consciousness, -headache, - neurologic symptoms PSYCHIATRIC: -anxiety, -depression. ALL OTHER SYSTEMS REVIEWED AND NEGATIVE. Physical Exam - Vital signs Vitals: Temp Pulse Resp BP Pulse Ox 98.4 F 114 H 17 140/111 H 96 05/14/17 20:24 05/14/17 20:24 05/14/17 20:24 05/14/17 20:24 05/14/17 20:24 - Notes Notes: PHYSICAL EXAMINATION: GENERAL: Well-appearing, well-nourished and in no acute distress. HEAD: Atraumatic, normocephalic. EYES: Pupils equal round and reactive to light, extraocular movements intact, sclera anicteric, conjunctiva are normal. ENT: nares patent, oropharynx clear without exudates. Moist mucous membranes. NECK: Normal range of motion, supple without lymphadenopathy LUNGS: Breath sounds clear to auscultation bilaterally and equal. Mild end- expiratory wheezing. No rhonchi. HEART: Regular rate and rhythm without murmurs ABDOMEN: Soft, nontender, normoactive bowel sounds. No guarding, no rebound. No masses appreciated. EXTREMITIES: Normal range of motion, no pitting or edema. No cyanosis. NEUROLOGICAL: Cranial nerves grossly intact. Normal speech, normal gait. Normal sensory and motor exams. PSYCH: Normal mood, normal affect. SKIN: Warm, Dry, normal turgor, no rashes or lesions noted. Course - Re-evaluation Re-evalutation: Patient appears very well and is in no respiratory distress. His tachycardia on triage occurred while he was coughing. On discharge, his heart rate was 82 when he was not coughing anymore. Patient has albuterol at home. Because this is been ongoing for 6 months, will begin azithromycin for possible underlying walking pneumonia. Provided him with follow-up at pulmonology instructed him to follow-up with his primary care physician at the [place]. - Vital Signs Vital signs: Temp Pulse Resp BP Pulse Ox 98.4 F 114 H 17 140/111 H 96 05/14/17 20:24 05/14/17 20:24 05/14/17 20:24 05/14/17 20:24 05/14/17 20:24 Discharge - Discharge Clinical Impression: Bronchitis, Chronic cough Condition: Stable Disposition: HOME, SELF-CARE Additional Instructions: BRONCHITIS: You have acute bronchitis. This disease is an infection or inflammation of the air passageways in your lungs. Symptoms usually include cough, low grade fever, shortness of breath, and wheezing. The cough usually persists for a couple of weeks. Most cases of bronchitis get better without antibiotics. We prescribe antibiotics when we believe bacteria are damaging your airways, or if there's high risk the bronchitis will worsen into pneumonia. Increase your fluid intake. A cool mist humidifier may make your lungs more comfortable. An expectorant (cough medicine that loosens phlegm) can help. If you smoke, STOP!!! Recovery from bronchitis can be somewhat slow, but you should see improvement within a day or two. Repeated episodes of bronchitis may result in lung damage -- for example, chronic bronchitis, recurrent pneumonias, or emphysema. Call the doctor if you develop increasing fever, shortness of breath, chest pain, bloody sputum, or otherwise worsen. If you have not improved at all after several days, contact the physician. BRONCHITIS WITH BRONCHOSPASM (WHEEZING): You have bronchitis with bronchospasm (wheezing). Sometimes people develop wheezing with a chest cold. This occurs either because of an underlying tendency toward asthma or because the virus itself irritates the bronchial tubes. This irritation causes cough, shortness of breath, and wheezing. Emergency treatment of bronchospasm may include adrenaline shots or bronchodilator aerosol. You may feel lightheaded and have a rapid pulse for an hour or two. Rest and get plenty of fluids. At home, we'll treat you with a bronchodilator inhaler. Corticosteroids may be required for some patients. Until you recover, avoid chemical fumes, dusts, pollens, and exercising in very cold or dry air. If you smoke, stop now! Most cases of bronchitis get better without antibiotics. We prescribe antibiotics when we believe bacteria are damaging your airways, or if there's high risk the bronchitis will worsen into pneumonia. Increase your fluid intake. A cool mist humidifier may make your lungs more comfortable. An expectorant (cough medicine that loosens phlegm) can help. Repeated episodes of bronchitis and bronchospasm may result in lung damage -- for example, chronic bronchitis, recurrent pneumonias, or emphysema. If you develop a fever, increased wheezing, chest pain, or severe shortness of breath, you should contact the doctor immediately. DECONGESTANT MEDICATION: A decongestant medicine has been prescribed. Often this medicine is combined in the same tablet with an antihistamine or expectorant. This type of medicine is helpful in treating a bad cold or sinus condition, as well as in treatment of the nasal congestion of hay fever. It is not of much benefit for lung infections. Decongestant medicines are related to stimulants. They can cause an increase in blood pressure and heart rate. Persons with heart disease and high blood pressure should not take decongestants without discussing this with the physician. If you develop palpitations, chest pain, headache, or tremors, stop the medicine and consult your physician. COUGH-SUPPRESSANT & EXPECTORANT MEDICATION: You are to use a cough medication as needed for relief of symptoms. This medicine is a combination of an expectorant (to make the mucous thinner and more easily "coughed up") and a cough suppressant (to reduce the frequency of coughing). The cough-suppressant medicine is related to narcotics. You may experience mild nausea and sleepiness. Some patients who are very sensitive to narcotics may have stomach pain from this medicine. Taking the medicine with food reduces these side effects. Do not drive or work with machinery until you know how this medicine affects you. The expectorant should have no side effects. Iodine-containing expectorants (such as organidin) should not be taken by persons with active thyroid disease unless approved by your doctor. Call the doctor if you develop shortness of breath, hives, rash, itching, lightheadedness, or severe nausea and vomiting. INHALED BRONCHODILATORS: You have received a treatment of and/or prescription for an inhaled bronchodilator -- a medication which stimulates the airways in the lung to dilate. This improves the flow of air in asthma, bronchitis, and emphysema. These medicines have some similarity to adrenaline, and can cause similar side effects: shakiness, racing heart, and a sense of nervousness. These side effects decrease with time. Contact your doctor if these side effects are severe. Do not over-use the medicine. Too-frequent use of the inhaler may make it ineffective. Call your doctor if the inhaler is not controlling your symptoms at the prescribed doses. ANTIBIOTIC THERAPY: You have been given an antibiotic prescription. It's important that you take all the medication, unless instructed otherwise by your physician. Failure to complete the entire course can result in relapse of your condition. Common side effects of antibiotics include nausea, intestinal cramping, or diarrhea. Women may develop vaginal yeast infections, and babies can get yeast (thrush) in the mouth following the use of antibiotics. Contact your physician if you develop significant side effects from this medication. Allergy to this antibiotic can result in hives, wheezing, faintness, or itching. If symptoms of allergy occur, stop the medication and call your doctor. AZITHROMYCIN: Azithromycin (Zithromax) is a broad spectrum antibiotic in the same class as erythromycin. It can treat a variety of bacterial infections, but is most frequently used for respiratory infections. Azithromycin is extremely long-lasting. It accumulates in body tissues and continues to kill bacteria for many days. In order to improve absorption, Azithromycin should be taken at least one hour before or two hours after a meal. It does not have the same strong tendency to upset the stomach as erythromycin and is usually very well tolerated. Patients who have had a rash or other true allergic reactions to erythromycin should not take this medication. Call if you develop gastrointestinal distress, severe diarrhea, rash, hives, itching, or shortness of breath. USE OF ACETAMINOPHEN (Tylenol): Acetaminophen may be taken for pain relief or fever control. It's much safer than aspirin, offering a wider range of "safe" dosages. It is safe during . Some brand names are Tylenol, Panadol, Datril, Anacin 3, Tempra, and Liquiprin. Acetaminophen can be repeated every four hours. The following are maximum recommended dosages: >89 pounds or adults 650 mg to 900 mg Acetaminophen can be repeated every four hours. Maximum dose not to exceed 4000 mg a day. SMOKING: If you smoke, you should stop smoking. The tar and chemicals in cigarette smoke are harmful. Smoking has been shown to cause: emphysema chronic bronchitis lung cancer mouth and throat cancer stomach and pancreas cancer premature aging defects In addition, smoking increases ear and lung infections in children of smokers. FOLLOW-UP CARE: If you have been referred to a physician for follow-up care, call the physician s office for an appointment as you were instructed or within the next two days. If you experience worsening or a significant change in your symptoms, notify the physician immediately or return to the Emergency Department at any time for re-evaluation. Prescriptions: Azithromycin [Zithromax 250 mg Tablet] 250 mg PO ASDIR PRN #6 tablet PRN Reason: Forms: Elevated Blood Pressure Referrals: MYLES OLIVAREZ MD [ACTIVE STAFF] - Follow up as needed
== END 2017-05-14 20:47 | disposition home or self-care (01) ==
LOC: ER 20:04
DX: J40 Bronchitis, not specified as acute or chronic (principal); K21.9 Gastro-esophageal reflux disease without esophagitis; E78.00 Pure hypercholesterolemia, unspecified; I10 Essential (primary) hypertension; E11.9 Type 2 diabetes mellitus without complications
CPT/HCPCS: 99283

== ENCOUNTER 2017-10-22 12:12 | Inpatient (IN) | payer OTHER ==
[2017-10-22] MEDS ORDERED: NORMAL SALINE 1000 ML 1,000 ML IV ONE ×3 (12:22→17:00)
[2017-10-22] MEDS ORDERED: LORAZEPAM INJ 2 MG/1 ML VIAL IV ONE ×2 (12:28→15:30)
--- NOTE | 2017-10-22 12:32 | ER Document Report ---
ED GI/ - General Stated Complaint: VOMITING Time Seen by Provider: 10/22/17 12:21 Information source: Patient Notes: 42-year-old male with past medical history including high blood pressure and chronic intermittent alcoholism who presents today stating that he has been drinking heavy over 3-4 days. Patient denies any obvious acute incident causing this increased alcohol consumption other than "normal family issues". Patient denies any suicidal homicidal ideations. Patient states he started to have some epigastric pain when 48 hours with some vomiting. He denies any diarrhea. He denies any fevers. He denies any radiation to his back. He denies any aggravating or relieving factors to this pain. He denies any hematemesis. Patient does have a history of alcohol withdrawal seizures admitted and discharged January 2015 from this location. Patient does state that he would like to stop drinking at this time. TRAVEL OUTSIDE OF THE [place] IN LAST 30 DAYS: No - HPI Patient complains to provider of: Abdominal pain, Other - See above Onset: Other - See above Timing/Duration: Gradual Quality of pain: Achy Severity at maximum: Moderate Severity in ED: Mild, Moderate Pain Level: 1 Context: Other - See above Location: Other - See above Sexual history: Active Associated symptoms: Other - See above Exacerbated by: Denies Relieved by: Denies Similar symptoms previously: Yes Recently seen / treated by doctor: Yes - Related Data Allergies/Adverse Reactions: No Known Allergies Allergy (Verified 09/10/17 12:35) Past Medical History - General Information source: Patient - Social History Smoking Status: Unknown if Ever Smoked Cigarette use (# per day): No Chew tobacco use (# tins/day): No Smoking Education Provided: No Frequency of alcohol use: None Family History: Arthritis, DM, Hyperlipidemia, Hypertension - Past Medical History Cardiac Medical History: Reports: Hx Hypercholesterolemia, Hx Hypertension Neurological Medical History: Reports: Hx Migraine, Hx Seizures - EtOH withdrawal Endocrine Medical History: Reports: Hx Diabetes Mellitus Type 2 Renal/ Medical History: Reports: Hx Renal Insufficiency. Denies: Hx Peritoneal Dialysis GI Medical History: Reports: Hx Gastroesophageal Reflux Disease, Hx Irritable Bowel Musculoskeltal Medical History: Reports Hx Arthritis, Reports Hx Gout, Reports Hx Musculoskeletal Deformity, Reports Hx Musculoskeletal Trauma Psychiatric Medical History: Reports: Hx Depression Past Surgical History: Reports: Hx Orthopedic Surgery - Rt knee - Immunizations Hx Diphtheria, Pertussis, Tetanus Vaccination: No Hx Pneumococcal Vaccination: 06/13/14 Review of Systems - Review of Systems Constitutional: denies: Fever EENT: denies: Eye discharge, Nose discharge Respiratory: denies: Short of breath Gastrointestinal: Vomiting Genitourinary: denies: Dysuria Musculoskeletal: denies: Leg swelling Skin: Other - no hives. denies: Rash Neurological/Psychological: Other - no slurred speech -: Yes All other systems reviewed and negative Physical Exam - Vital signs Vitals: Temp Pulse Resp BP Pulse Ox 99.2 F 130 H 18 142/123 H 96 10/22/17 12:15 10/22/17 12:15 10/22/17 12:15 10/22/17 12:15 10/22/17 12:15 Notes: Reviewed vital signs and nursing note as charted by RN. CONSTITUTIONAL: Alert and oriented and responds appropriately to questions. Diaphoretic HEAD: Normocephalic; atraumatic EYES: PERRL; Conjunctivae clear, sclerae non-icteric ENT: Normal nose; no rhinorrhea; moist mucous membranes; pharynx without lesions noted NECK: Supple without meningismus; non-tender; no cervical lymphadenopathy, no masses CARD: Tachycardic; no murmurs, no clicks, no rubs, no gallops; symmetric distal pulses RESP: Normal chest excursion without splinting or tachypnea; breath sounds clear and equal bilaterally; no wheezes, no rhonchi, no rales ABD/GI: Normal bowel sounds; non-distended; soft, to palpation of the epigastric region without rebound or guarding. Negative Cueva sign BACK: The back appears normal and is non-tender to palpation, there is no CVA tenderness EXT: Normal ROM in all joints; non-tender to palpation; no cyanosis, no effusions, no edema SKIN: No acute lesions noted NEURO: Moves all extremities equally; no nystagmus noted; Motor and sensory function intact; bilateral hand tremors PSYCH: The patient's mood and manner are appropriate. Grooming and personal hygiene are appropriate. Course - Re-evaluation Re-evalutation: 10/22/17 12:31 Given the history and physical examination, we will obtain basic labs, lipase, liver function, provide Ativan and fluids, and reassess. I am concerned about possible withdrawal symptoms in this patient with a history of withdrawal seizures. I am also concerned about a possible gastritis/pancreatitis. 10/22/17 12:40 EKG shows a heart of 130, sinus tachycardia, normal axis, ST depressions in leads V3 through V6. Patient denies any chest pain. Old EKG has been requested. Fluids are infusing. I added a troponin. 10/22/17 13:59 Labs including troponin as recorded. Patient still denies any chest pain. I have obtained the previous EKG on the patient from September 10 showing very similar findings in leads V6 and leads I and II at that time. We have replaced the patient's potassium. Fluid is still infusing. Patient states he feels better after the Ativan. 10/22/17 15:02 Labs as recorded. Patient is still having tachycardia with elevated blood pressure. Patient still having nausea and vomiting. Third liter of fluid has been started. I believe the patient will require admission to the [facility] for alcohol withdrawal given his history. On repeat abdominal exam is improved. Still only tender the midepigastric region. No lower abdominal tenderness. - Vital Signs Vital signs: Temp Pulse Resp BP Pulse Ox 99.2 F 130 H 18 142/123 H 96 10/22/17 12:15 10/22/17 12:15 10/22/17 12:15 10/22/17 12:15 10/22/17 12:15 - Laboratory Result Diagrams: 10/22/17 12:25 10/22/17 12:25 Laboratory results interpreted by me: 10/22/17 10/22/17 12:25 12:25 WBC 10.9 H RBC 6.05 H RDW 17.1 H Seg Neutrophils % 79.2 H Lymphocytes % 12.8 L Absolute Neutrophils 8.6 H Potassium 3.0 L* Chloride 84 L Anion Gap 35 H Creatinine 1.40 H Est GFR (Non-Af Amer) 55 L Glucose 148 H Calcium 10.6 H Direct Bilirubin 0.5 H Total Protein 9.7 H Albumin 5.4 H Discharge - Discharge Clinical Impression: Epigastric abdominal pain Vomiting Qualifiers: Vomiting type: unspecified Vomiting Intractability: non-intractable Nausea presence: with nausea Qualified Code(s): R11.2 - Nausea with vomiting, unspecified Alcohol withdrawal Qualifiers: Complication of substance-induced condition: with unspecified complication Qualified Code(s): F10.239 - Alcohol dependence with withdrawal, unspecified Condition: Fair Disposition: ADMITTED INPATIENT Admitting Provider: Hospitalist Unit Admitted: [facility]
[2017-10-22 12:45] LABS: ABSOLUTE BASOPHILS # (AUTO) 0.1 10^3/uL (0.0-0.2); ABSOLUTE LYMPHOCYTES (AUTO) 1.4 10^3/uL (0.5-4.7); ABSOLUTE MONOCYTES (AUTO) 0.8 10^3/uL (0.1-1.4); ABSOLUTE NEUT (AUTO) 8.6 10^3/uL (1.7-8.2); BASOPHILS % (AUTO) 0.6 % (0-2); HEMATOCRIT 50.4 % (37.9-51.0); HGB HCT DIFFERENCE 0.6; LYMPHOCYTES % (AUTO) 12.8 % (13-45); MEAN CORPUSCULAR HEMOGLOBIN 28.1 pg (27.0-33.4); MEAN CORPUSCULAR HGB CONC 33.7 g/dL (32.0-36.0); MEAN CORPUSCULAR VOLUME 83 fl (80-97); MONOCYTES % (AUTO) 7.4 % (3-13); RED BLOOD COUNT 6.05 10^6/uL (4.35-5.55); RED CELL DISTRIBUTION WIDTH 17.1 % (11.5-14.0); SEGMENTED NEUTROPHILS % (AUTO) 79.2 % (42-78); WHITE BLOOD COUNT 10.9 10^3/uL (4.0-10.5)
[2017-10-22 13:13] LABS: ALANINE AMINOTRANSFERASE 23 U/L (21-72); ALBUMIN 5.4 g/dL (3.5-5.0); ALCOHOL 49 mg/dL (NONE DETECTED); ALKALINE PHOSPHATASE 105 U/L (38-126); ASPARTATE AMINO TRANSFERASE 34 U/L (17-59); BILIRUBIN,DIRECT 0.5 mg/dL (0.0-0.4); BILIRUBIN,TOTAL 1.1 mg/dL (0.2-1.3); BLOOD UREA NITROGEN 19 mg/dL (7-20); CALCIUM 10.6 mg/dL (8.4-10.2); CHLORIDE 84 mmol/L (98-107); GLUCOSE 148 mg/dL (75-110); LIPASE 60.7 U/L (23-300); TOTAL PROTEIN 9.7 g/dL (6.3-8.2)
[2017-10-22 13:21] LABS: CARBON DIOXIDE 25 mmol/L (22-30); SODIUM 143.5 mmol/L (137-145)
[2017-10-22 13:31] LABS: ANION GAP 35 (5-19)
--- NOTE | 2017-10-22 13:33 | EKG REPORT ---
SEVERITY:- ABNORMAL ECG - SINUS TACHYCARDIA REPOL ABNRM SUGGESTS ISCHEMIA, DIFFUSE LEADS : Confirmed by: Murtaza Real 22-Oct-2017 13:32:57
[2017-10-22] MEDS ORDERED: POTASSI CL 20 MEQ/50 ML RIDER 20 MEQ/50 ML RTUPB IV ONE (13:49)
[2017-10-22] MEDS ORDERED: LORAZEPAM INJ 2 MG/1 ML VIAL IV PRN (15:43)
[2017-10-22] MEDS ORDERED: HYDRALAZINE HCL INJ/PF 20 MG/1 ML SDV IV PRN (15:45)
[2017-10-22] MEDS ORDERED: DIAZEPAM 2 MG TABLET PO ONE (16:00)
[2017-10-22] MEDS ORDERED: IPRATROPIUM/ALBUTEROL 0.5-2.5 MG/3 ML AMPUL NEB PRN (16:12)
[2017-10-22] MEDS ORDERED: ONDANSETRON HCL INJ/PF 4 MG/2 ML SDV IV PRN (16:18)
[2017-10-22] MEDS ORDERED: ACETAMINOPHEN 325 MG TABLET PO PRN (16:18)
[2017-10-22] MEDS ORDERED: PROMETHAZINE HCL 25 MG SUPP.RECT PR PRN (16:18)
[2017-10-22] MEDS ORDERED: MAG HYDROX/AL HYDROX/SIMETH SUSP 30 ML UDCUP PO PRN (16:18)
[2017-10-22] MEDS ORDERED: NORMAL SALINE 1000 ML 1,000 ML IV PRN (16:18)
[2017-10-22] MEDS ORDERED: DEXTROSE 50%-WATER 25 GM/50 ML DISP.SYRIN IV PRN ×2 (16:23)
[2017-10-22] MEDS ORDERED: GLUCAGON,HUMAN RECOMB 1 MG INJ IM PRN (16:23)
[2017-10-22] MEDS ORDERED: DEXTROSE 40% GEL 15 GM TUBE PO PRN ×2 (16:23)
[2017-10-22] MEDS ORDERED: INSULIN LISPRO 100 UNIT/ML 3 ML VIAL SUBCUT PRN (16:23)
[2017-10-22] MEDS: POTASSI CL 20 MEQ/50 ML RIDER 20 MEQ/50 ML RTUPB IV SCH ×2 (16:26→20:03)
--- NOTE | 2017-10-22 16:54 | PDOC H&P ---
History of Present Illness Admission Date/PCP: 10/22/17 15:15 Patient complains of: Nausea and vomiting History of Present Illness: CLIF TURNER is a 42 year old male with a past medical history significant for hypertension, hyperlipidemia, diabetes mellitus, alcohol abuse, alcohol withdrawal with seizure who presented to the emergency department with a complaint of nausea and vomiting 1 day following binge drinking approximately 1 /2 gallon of vodka for the last 3-4 days. The patient complains of chest discomfort described as burning and related to p.o. intake that began following numerous episodes of emesis this a.m. The patient reports that he is no longer tolerating fluids. He also complains of uncomfortable hiccups. He denies abdominal pain and diarrhea. Patient states that he has not been taking his Lantus or Humalog while drinking alcohol this weekend. He believes that the last time he took insulin was Sunday afternoon. He reports that he binge drinks approximately 1 time per month. He reports that he has been previously referred to [facility], but has not followed up. He does state that he may be interested in inpatient rehab. Workup in the emergency department reveals leukocytosis 10.9, potassium 0, magnesium 0.9, serum alcohol 49 with an anion gap of 35. He is referred to the hospitalist service for admission. Past Medical History Cardiac Medical History: Reports: Hyperlipidema, Hypertension Pulmonary Medical History: Reports: None EENT Medical History: Reports: None Neurological Medical History: Reports: Migraine, Seizures - EtOH withdrawal Endocrine Medical History: Reports: Diabetes Mellitus Type 2 - Insulin-dependent Renal/ Medical History: Reports: None Malignancy Medical History: Reports: None GI Medical History: Reports: Gastroesophageal Reflux Disease Musculoskeltal Medical History: Reports: Arthritis, Gout Psychiatric Medical History: Reports: Depression, Other - Alcohol abuse Hematology: Denies: Anemia Infectious Medical History: Reports: None Past Surgical History Past Surgical History: Reports: Orthopedic Surgery - Rt knee Social History Information Source: Patient Lives with: Family Smoking Status: Never Smoker Frequency of Alcohol Use: Heavy Hx Recreational Drug Use: No Hx Prescription Drug Abuse: No Family History Family History: Arthritis, DM, Hyperlipidemia, Hypertension Parental Family History Reviewed: Yes Children Family History Reviewed: Yes Sibling(s) Family History Reviewed.: Yes Medication/Allergy Home Medications: Allopurinol [Zyloprim 300 mg Tablet] 300 mg PO DAILY 09/10/17 Cholecalciferol (Vitamin D3) [Vitamin D3 1000 Unit Tablet] 1,000 unit PO DAILY 09/10/17 Diclofenac Sodium 75 mg PO BID 09/10/17 Amoxicillin 1 tab PO TID #30 tab 09/16/17 Aspirin [Ecotrin 81 mg EC Tablet] 81 mg PO DAILY tabec 09/16/17 Carvedilol [Coreg 3.125 mg Tablet] 3.125 mg PO Q12A #60 tablet 09/16/17 Colchicine [Colcrys 0.6 mg Tablet] 0.6 mg PO Q12 #60 tablet 09/16/17 Guaifenesin [Mucinex Sr 600 mg Tablet.sa] 600 mg PO Q12 tablet.sa 09/16/17 Lisinopril [Prinivil] 10 mg PO Q12 #60 tablet 09/16/17 Methocarbamol 750 mg PO TIDP PRN #14 tablet 09/16/17 Allergies/Adverse Reactions: No Known Allergies Allergy (Verified 09/10/17 12:35) Review of Systems Constitutional: PRESENT: headache(s). ABSENT: chills, fever(s), weight gain, weight loss Eyes: ABSENT: visual disturbances Ears: ABSENT: hearing changes Cardiovascular: PRESENT: palpitations. ABSENT: chest pain, dyspnea on exertion , edema, orthropnea Respiratory: ABSENT: cough, hemoptysis Gastrointestinal: PRESENT: heartburn, nausea, vomiting. ABSENT: abdominal pain , constipation, diarrhea, hematemesis, hematochezia Genitourinary: ABSENT: dysuria, hematuria Musculoskeletal: ABSENT: joint swelling Integumentary: ABSENT: rash, wounds Neurological: ABSENT: abnormal gait, abnormal speech, confusion, dizziness, focal weakness, syncope Psychiatric: PRESENT: depression. ABSENT: anxiety, homidical ideation, suicidal ideation Endocrine: ABSENT: cold intolerance, heat intolerance, polydipsia, polyuria Hematologic/Lymphatic: ABSENT: easy bleeding, easy bruising Physical Exam Vital Signs: Temp Pulse Resp BP Pulse Ox 99.2 F 130 H 16 157/126 H 95 10/22/17 12:15 10/22/17 12:15 10/22/17 16:01 10/22/17 16:01 10/22/17 16:01 General appearance: PRESENT: mild distress, obese, well-developed, well- nourished Head exam: PRESENT: atraumatic, normocephalic Eye exam: PRESENT: conjunctiva pink, EOMI, PERRLA. ABSENT: scleral icterus Ear exam: PRESENT: normal external ear exam Mouth exam: PRESENT: moist, tongue midline Neck exam: ABSENT: carotid bruit, JVD, lymphadenopathy, thyromegaly Respiratory exam: PRESENT: clear to auscultation luis daniel, symmetrical, unlabored. ABSENT: rales, rhonchi, wheezes Cardiovascular exam: PRESENT: RRR, tachycardia. ABSENT: diastolic murmur, rubs , systolic murmur Pulses: PRESENT: normal dorsalis pedis pul Vascular exam: PRESENT: normal capillary refill GI/Abdominal exam: PRESENT: normal bowel sounds, soft. ABSENT: distended, guarding, mass, organolmegaly, rebound, tenderness Rectal exam: PRESENT: deferred Extremities exam: PRESENT: full ROM. ABSENT: calf tenderness, clubbing, pedal edema Neurological exam: PRESENT: alert, awake, oriented to person, oriented to place , oriented to time, oriented to situation, CN II-XII grossly intact. ABSENT: motor sensory deficit Psychiatric exam: PRESENT: appropriate affect, normal mood. ABSENT: homicidal ideation, suicidal ideation Skin exam: PRESENT: dry, intact, warm. ABSENT: cyanosis, rash Assessment & Plan - Diagnosis (1) Metabolic acidosis Is this a current diagnosis for this admission?: Yes Plan: The patient is admitted with metabolic acidosis secondary to EtOH with an anion gap of 35. The patient is an insulin-dependent type 2 diabetic and so the possibility of DKA is considered, but is less likely as the glucose is 148. We will provide IV fluid resuscitation and trend BMP q. 8. (2) ARF (acute renal failure) Is this a current diagnosis for this admission?: Yes Plan: Likely secondary to dehydration related to acute alcohol intoxication with nausea and vomiting. The patient has received 2 L IVF bolus by the ED. Will order a third bolus followed by maintenance fluids. Avoid nephrotoxic medications. (3) ETOH abuse Is this a current diagnosis for this admission?: Yes Plan: EtOH abuse with history of alcohol withdrawal seizures. We will schedule Valium 5 mg every 6 with Ativan as needed withdrawal symptoms. Fall, aspiration, and seizure precautions. Will ask the operations planner to meet with the patient to discuss social work professor and inpatient rehab at discharge. (4) Nausea and vomiting Is this a current diagnosis for this admission?: Yes Plan: Secondary to acute alcohol intoxication. We will provide IV fluid resuscitation. As needed Zofran and promethazine for nausea and vomiting. Clear liquid diet and advance as tolerated. (5) Epigastric abdominal pain Is this a current diagnosis for this admission?: Yes Plan: Secondary to alcohol gastritis. Will provide IV Protonix twice daily. Maalox for reflux symptoms. (6) Hypokalemia Is this a current diagnosis for this admission?: Yes Plan: Secondary to persistent nausea in the setting of alcohol withdrawal. Potassium 40 mEq IV and trend BMP every 8 hours. Will replace as necessary. (7) Hypomagnesemia Is this a current diagnosis for this admission?: Yes Plan: Will replace and continue to monitor. - Time Time Spent: 50 to 70 Minutes Medications reviewed and adjusted accordingly: Yes - Inpatient Certification Based on my medical assessment, after consideration of the patient's comorbidities, presenting symptoms, or acuity I expect that the services needed warrant INPATIENT care.: Yes I certify that my determination is in accordance with my understanding of Medicare's requirements for reasonable and necessary INPATIENT services [42 CFR 412.3e].: Yes Medical Necessity: Need Close Monitoring Due to Risk of Patient Decompensation, Need For IV Fluids, Need For Continuous Telemetry Monitoring
[2017-10-22] MEDS ORDERED: ENOXAPARIN SODIUM INJ 40 MG/0.4 ML DISP.SYRIN SUBCUT ONE (17:30)
[2017-10-22 17:52] LABS: BLOOD UREA NITROGEN 21 mg/dL (7-20); CALCIUM 9.4 mg/dL (8.4-10.2); CHLORIDE 89 mmol/L (98-107); CREATININE RESULT 1.47 mg/dL (0.52-1.25); GLUCOSE 120 mg/dL (75-110); POTASSIUM 3.5 mmol/L (3.6-5.0); SODIUM 142.5 mmol/L (137-145)
[2017-10-22 18:11] LABS: ANION GAP 19 (5-19)
[2017-10-22 18:14] LABS: CARBON DIOXIDE 35 mmol/L (22-30)
[2017-10-22] MEDS: MAGNESIUM SULFATE/D5W 1 GM/100 ML RTUPB IV SCH ×2 (18:30→20:11)
[2017-10-22] MEDS: DIAZEPAM 5 MG TABLET PO SCH ×2 (20:05→23:24)
[2017-10-22] MEDS: PANTOPRAZOLE SODIUM 40 MG VIAL IV SCH (21:49)
[2017-10-22 22:35] LABS: APPEARANCE,URINE CLOUDY; BILIRUBIN,URINE NEGATIVE (NEGATIVE); GLUCOSE, URINE 50 mg/dL (NEGATIVE); KETONES,URINE NEGATIVE (NEGATIVE); LEUKOCYTE ESTERASE,URINE NEGATIVE (NEGATIVE); NITRITE,URINE NEGATIVE (NEGATIVE); PROTEIN,URINE >=500 mg/dL (NEGATIVE); URINE SPECIFIC GRAVITY 1.022; UROBILINOGEN,URINE NEGATIVE mg/dL (<2.0)
[2017-10-22] MEDS: NORMAL SALINE 1000 ML 1,000 ML IV PRN (22:36)
[2017-10-23 03:17] LABS: ANION GAP 12 (5-19); BLOOD UREA NITROGEN 18 mg/dL (7-20); CALCIUM 8.2 mg/dL (8.4-10.2); CARBON DIOXIDE 33 mmol/L (22-30); CHLORIDE 94 mmol/L (98-107); CREATININE RESULT 1.05 mg/dL (0.52-1.25); GLUCOSE 116 mg/dL (75-110); SODIUM 139.4 mmol/L (137-145)
[2017-10-23 03:35] LABS: POTASSIUM 2.6 mmol/L (3.6-5.0)
[2017-10-23] MEDS: POTASSIUM CHLORIDE 20 MEQ/50 ML RTU IV SCH ×2 (03:57→06:03)
[2017-10-23] MEDS ORDERED: POTASSIUM CHLORIDE 10 MEQ TABLET.SA PO ONE ×3 (04:00→13:00)
[2017-10-23] MEDS: NORMAL SALINE 1000 ML 1,000 ML IV PRN ×2 (04:29→20:11)
[2017-10-23 04:45] LABS: ABSOLUTE BASOPHILS # (AUTO) 0.1 10^3/uL (0.0-0.2); ABSOLUTE LYMPHOCYTES (AUTO) 2.9 10^3/uL (0.5-4.7); ABSOLUTE MONOCYTES (AUTO) 0.8 10^3/uL (0.1-1.4); ABSOLUTE NEUT (AUTO) 4.3 10^3/uL (1.7-8.2); BASOPHILS % (AUTO) 0.9 % (0-2); EOSINOPHILS % (AUTO) 0.4 % (0-6); HEMATOCRIT 40.1 % (37.9-51.0); HGB HCT DIFFERENCE 1.9; LYMPHOCYTES % (AUTO) 35.4 % (13-45); MEAN CORPUSCULAR HEMOGLOBIN 28.8 pg (27.0-33.4); MEAN CORPUSCULAR HGB CONC 34.9 g/dL (32.0-36.0); MEAN CORPUSCULAR VOLUME 83 fl (80-97); MONOCYTES % (AUTO) 10.2 % (3-13); RED BLOOD COUNT 4.84 10^6/uL (4.35-5.55); RED CELL DISTRIBUTION WIDTH 16.5 % (11.5-14.0); SEGMENTED NEUTROPHILS % (AUTO) 53.1 % (42-78); WHITE BLOOD COUNT 8.1 10^3/uL (4.0-10.5)
[2017-10-23 05:01] LABS: ANION GAP 16 (5-19); BLOOD UREA NITROGEN 16 mg/dL (7-20); CALCIUM 8.3 mg/dL (8.4-10.2); CARBON DIOXIDE 30 mmol/L (22-30); CHLORIDE 94 mmol/L (98-107); CREATININE RESULT 1.03 mg/dL (0.52-1.25); GLUCOSE 128 mg/dL (75-110)
[2017-10-23] MEDS: DIAZEPAM 5 MG TABLET PO SCH ×4 (06:02→23:14)
--- NOTE | 2017-10-23 08:08 | EKG REPORT ---
SEVERITY:- ABNORMAL ECG - SINUS RHYTHM VENT PREEXCITATION, LEFT ACCESSORY PATHWAY LVH WITH SECONDARY ST-T CHANGES : Confirmed by: Murtaza Real 23-Oct-2017 08:07:42
[2017-10-23] MEDS ORDERED: METOCLOPRAMIDE HCL ORAL SOLN 10 MG/10 ML UDCUP PO ONE (08:55)
[2017-10-23] MEDS ORDERED: LIDOCAINE 2% VISCOUS SOLN 20 ML UDCUP PO ONE (08:55)
[2017-10-23] MEDS ORDERED: MAG HYDROX/AL HYDROX/SIMETH SUSP 30 ML UDCUP PO ONE (08:55)
--- NOTE | 2017-10-23 09:09 | Physician Advisory Note ---
Physician Advisor ProgressNote .: Pursuant to the plan for [facility], I have reviewed the medical record for this patient. Physician Advisor Statement: Status: Brought in as Outpt Obs. After 1 night of IVF, scheduled Valium, frequent electrolyte replacement & reassessment, pt still w/significant hypokalemia (& likely still hypomagnesemia too), recurrent frequent tachycardia. Cr is not yet back to baseline level of 0.6. NS running at 175ml/ hr. Pt with 29 beats of VTach on tele this AM per nursing, who called dr. Remains at high risk for EtOH w/d seizures, & wants to detox. Appropriate for change to Inpatient status. CK
[2017-10-23] MEDS: PANTOPRAZOLE SODIUM 40 MG VIAL IV SCH ×2 (09:12→22:05)
[2017-10-23] MEDS: LISINOPRIL 10 MG TABLET PO SCH ×2 (09:12→22:05)
[2017-10-23] MEDS: ASPIRIN 81 MG TABLET, ENT COATED PO SCH (09:12)
[2017-10-23] MEDS: CARVEDILOL 3.125 MG TABLET PO SCH ×2 (09:13→22:06)
[2017-10-23] MEDS: ENOXAPARIN SODIUM INJ 40 MG/0.4 ML DISP.SYRIN SUBCUT SCH (09:14)
[2017-10-23 11:07] LABS: ANION GAP 16 (5-19); BLOOD UREA NITROGEN 14 mg/dL (7-20); CALCIUM 7.9 mg/dL (8.4-10.2); CARBON DIOXIDE 27 mmol/L (22-30); CHLORIDE 94 mmol/L (98-107); GLUCOSE 167 mg/dL (75-110); MAGNESIUM 1.3 mg/dL (1.6-2.3); POTASSIUM 3.1 mmol/L (3.6-5.0); SODIUM 136.7 mmol/L (137-145)
[2017-10-23] MEDS: MAGNESIUM SULFATE/D5W 1 GM/100 ML RTUPB IV SCH ×2 (13:04→14:19)
--- NOTE | 2017-10-23 13:12 | PDOC PROGRESS REPORT ---
Subjective Progress Note for:: 10/23/17 Subjective:: The patient is seen on morning rounds for follow-up of nausea and vomiting secondary to acute alcohol intoxication. He is found resting in bed comfortably. Upon entering the room he is sleeping, but wakes easily. He denies further episodes of nausea and vomiting. He does report 3-4 loose bowel movements this morning. He also complains of epigastric pain described as "chest twisting" that he states is his typical reflux pain. He denies fever, chills, palpitations, dyspnea, orthopnea, nausea and vomiting. He has no questions or concerns today. Reason For Visit: METABOLIC ACIDOSIS, ACUTE RENAL FAILURE, ACUTE Physical Exam Vital Signs: Temp Pulse Resp BP Pulse Ox 97.6 F 99 18 138/90 H 98 10/23/17 12:01 10/23/17 12:01 10/23/17 12:01 10/23/17 12:01 10/23/17 12:01 Intake & Output 10/22/17 10/23/17 10/24/17 06:59 06:59 06:59 Intake Total 3150 Output Total 250 Balance 2900 Weight 112.2 kg General appearance: PRESENT: no acute distress, obese, well-developed, well- nourished Head exam: PRESENT: atraumatic, normocephalic Eye exam: PRESENT: conjunctiva pink, EOMI, PERRLA. ABSENT: scleral icterus Ear exam: PRESENT: normal external ear exam Mouth exam: PRESENT: moist, tongue midline Neck exam: ABSENT: carotid bruit, JVD, lymphadenopathy, thyromegaly Respiratory exam: PRESENT: clear to auscultation luis daniel, symmetrical, unlabored. ABSENT: rales, rhonchi, wheezes Cardiovascular exam: PRESENT: RRR, tachycardia. ABSENT: diastolic murmur, rubs , systolic murmur Pulses: PRESENT: normal dorsalis pedis pul Vascular exam: PRESENT: normal capillary refill GI/Abdominal exam: PRESENT: normal bowel sounds, soft, tenderness - epigastric. ABSENT: distended, guarding, mass, organolmegaly, rebound Rectal exam: PRESENT: deferred Extremities exam: PRESENT: full ROM. ABSENT: calf tenderness, clubbing, pedal edema Neurological exam: PRESENT: alert, awake, oriented to person, oriented to place , oriented to time, oriented to situation, CN II-XII grossly intact. ABSENT: motor sensory deficit Psychiatric exam: PRESENT: appropriate affect, normal mood. ABSENT: homicidal ideation, suicidal ideation Skin exam: PRESENT: dry, intact, warm. ABSENT: cyanosis, rash Results Laboratory Results: 10/23/17 04:33 10/23/17 10:05 10/22/17 10/22/17 10/23/17 17:15 22:10 01:04 WBC RBC Hgb Hct MCV MCH MCHC RDW Plt Count Seg Neutrophils % Lymphocytes % Monocytes % Eosinophils % Basophils % Absolute Neutrophils Absolute Lymphocytes Absolute Monocytes Absolute Eosinophils Absolute Basophils Sodium 142.5 Cancelled Potassium 3.5 L Cancelled Chloride 89 L Cancelled Carbon Dioxide 35 H D Cancelled Anion Gap 19 Cancelled BUN 21 H Cancelled Creatinine 1.47 H Cancelled Est GFR ( Amer) > 60 Cancelled Est GFR (Non-Af Amer) 52 L Cancelled Glucose 120 H Cancelled Calcium 9.4 Cancelled Magnesium Urine Color YELLOW Urine Appearance CLOUDY Urine pH 5.0 Ur Specific [place] 1.022 Urine Protein >=500 H Urine Glucose (UA) 50 H Urine Ketones NEGATIVE Urine Blood SMALL H Urine Nitrite NEGATIVE Ur Leukocyte Esterase NEGATIVE Urine WBC (Auto) 8 Urine RBC (Auto) 1 10/23/17 10/23/17 10/23/17 02:35 04:33 04:33 WBC 8.1 RBC 4.84 Hgb 14.0 D Hct 40.1 MCV 83 MCH 28.8 MCHC 34.9 RDW 16.5 H Plt Count 185 Seg Neutrophils % 53.1 Lymphocytes % 35.4 Monocytes % 10.2 Eosinophils % 0.4 Basophils % 0.9 Absolute Neutrophils 4.3 Absolute Lymphocytes 2.9 Absolute Monocytes 0.8 Absolute Eosinophils 0.0 Absolute Basophils 0.1 Sodium 139.4 140.0 Potassium 2.6 L* 3.0 L* Chloride 94 L 94 L Carbon Dioxide 33 H 30 Anion Gap 12 16 BUN 18 16 Creatinine 1.05 1.03 Est GFR ( Amer) > 60 > 60 Est GFR (Non-Af Amer) > 60 > 60 Glucose 116 H 128 H Calcium 8.2 L 8.3 L Magnesium Urine Color Urine Appearance Urine pH Ur Specific [place] Urine Protein Urine Glucose (UA) Urine Ketones Urine Blood Urine Nitrite Ur Leukocyte Esterase Urine WBC (Auto) Urine RBC (Auto) 10/23/17 10:05 WBC RBC Hgb Hct MCV MCH MCHC RDW Plt Count Seg Neutrophils % Lymphocytes % Monocytes % Eosinophils % Basophils % Absolute Neutrophils Absolute Lymphocytes Absolute Monocytes Absolute Eosinophils Absolute Basophils Sodium 136.7 L Potassium 3.1 L Chloride 94 L Carbon Dioxide 27 Anion Gap 16 BUN 14 Creatinine 0.90 Est GFR ( Amer) > 60 Est GFR (Non-Af Amer) > 60 Glucose 167 H Calcium 7.9 L Magnesium 1.3 L Urine Color Urine Appearance Urine pH Ur Specific [place] Urine Protein Urine Glucose (UA) Urine Ketones Urine Blood Urine Nitrite Ur Leukocyte Esterase Urine WBC (Auto) Urine RBC (Auto) 10/22/17 10/22/17 10/23/17 17:15 22:38 04:33 Troponin I 0.012 0.013 < 0.012 Assessment & Plan - Diagnosis (1) ARF (acute renal failure) Is this a current diagnosis for this admission?: Yes Plan: Proving. Likely secondary to dehydration related to acute alcohol intoxication with nausea and vomiting. The patient was provided 3 L IV fluid bolus followed by maintenance fluids. His creatinine has since trended down from 1.47-0.90. However, this remains elevated above his baseline of 0.59. We will continue IV fluids and trend BMPs. Avoid nephrotoxic medications. (2) ETOH abuse Is this a current diagnosis for this admission?: Yes Plan: EtOH abuse with history of alcohol withdrawal seizures. We will schedule Valium 5 mg every 6 with Ativan as needed withdrawal symptoms. Fall, aspiration, and seizure precautions. Will ask the partner integration planner to meet with the patient to discuss high school social studies teacher and inpatient rehab at discharge. (3) Nausea and vomiting Is this a current diagnosis for this admission?: Yes Plan: Improved; The patient has not had any further episodes of emesis. Secondary to acute alcohol intoxication. We will provide IV fluid resuscitation. As needed Zofran and promethazine for nausea and vomiting. Clear liquid diet and advance as tolerated. (4) Epigastric abdominal pain Is this a current diagnosis for this admission?: Yes Plan: Secondary to alcohol gastritis. Will provide IV Protonix twice daily. Maalox for reflux symptoms. We will trial GI cocktail 1. (5) Hypokalemia Is this a current diagnosis for this admission?: Yes Plan: Secondary to persistent nausea and vomiting in the setting of alcohol withdrawal. Trend BMP every 6 hours. Will replace as necessary. (6) Hypomagnesemia Is this a current diagnosis for this admission?: Yes Plan: Magnesium was low again today at 1.3; have ordered 2 g magnesium. We will continue to monitor and replace as necessary. (7) Hyponatremia Is this a current diagnosis for this admission?: Yes Plan: Secondary to dehydration as a result of persistent nausea and vomiting in the setting of alcohol withdrawal. Trend BMP every 6 hours. Will replace as necessary. (8) Metabolic acidosis Is this a current diagnosis for this admission?: Yes Plan: Resolved. The patient is admitted with metabolic acidosis secondary to EtOH with an anion gap of 35. The patient is an insulin-dependent type 2 diabetic and so the possibility of DKA is considered, but is less likely as the glucose is 148. Anion gap has since closed and he is no longer acidotic as the bicarb is noted to be normal at 27. Continue to provide IV fluids until tolerating adequate p.o. - Time Time Spent with patient: 15-24 minutes Medications reviewed and adjusted accordingly: Yes Anticipated discharge: Home - Inpatient Certification Based on my medical assessment, after consideration of the patient's comorbidities, presenting symptoms, or acuity I expect that the services needed warrant INPATIENT care.: Yes I certify that my determination is in accordance with my understanding of Medicare's requirements for reasonable and necessary INPATIENT services [42 CFR 412.3e].: Yes Medical Necessity: Need Close Monitoring Due to Risk of Patient Decompensation, Need For IV Fluids, Need For Continuous Telemetry Monitoring
[2017-10-23] MEDS ORDERED: POTASSIUM CHLORIDE 10 MEQ TABLET.SA PO SCH (16:00)
[2017-10-23 18:49] LABS: ANION GAP 12 (5-19); BLOOD UREA NITROGEN 11 mg/dL (7-20); CALCIUM 7.9 mg/dL (8.4-10.2); CARBON DIOXIDE 30 mmol/L (22-30); CHLORIDE 95 mmol/L (98-107); CREATININE RESULT 0.94 mg/dL (0.52-1.25); GLUCOSE 135 mg/dL (75-110); POTASSIUM 3.6 mmol/L (3.6-5.0); SODIUM 136.9 mmol/L (137-145)
[2017-10-23] MEDS ORDERED: TRAMADOL HCL 50 MG TABLET PO ONE (19:30)
[2017-10-24 00:44] LABS: ANION GAP 9 (5-19); BLOOD UREA NITROGEN 13 mg/dL (7-20); CALCIUM 7.2 mg/dL (8.4-10.2); CARBON DIOXIDE 26 mmol/L (22-30); CHLORIDE 101 mmol/L (98-107); CREATININE RESULT 0.89 mg/dL (0.52-1.25); GLUCOSE 115 mg/dL (75-110); POTASSIUM 3.5 mmol/L (3.6-5.0); SODIUM 135.6 mmol/L (137-145)
[2017-10-24] MEDS: NORMAL SALINE 1000 ML 1,000 ML IV PRN (03:14)
[2017-10-24 05:24] LABS: ANION GAP 8 (5-19); BLOOD UREA NITROGEN 12 mg/dL (7-20); CARBON DIOXIDE 28 mmol/L (22-30); CHLORIDE 102 mmol/L (98-107); CREATININE RESULT 0.88 mg/dL (0.52-1.25); GLUCOSE 106 mg/dL (75-110); POTASSIUM 3.3 mmol/L (3.6-5.0); SODIUM 137.5 mmol/L (137-145)
[2017-10-24 05:39] LABS: CALCIUM 6.9 mg/dL (8.4-10.2)
[2017-10-24] MEDS: DIAZEPAM 5 MG TABLET PO SCH ×2 (06:13→11:08)
[2017-10-24] MEDS: ASPIRIN 81 MG TABLET, ENT COATED PO SCH (09:44)
[2017-10-24] MEDS: CARVEDILOL 3.125 MG TABLET PO SCH (09:44)
[2017-10-24] MEDS: LISINOPRIL 10 MG TABLET PO SCH (09:44)
[2017-10-24] MEDS: PANTOPRAZOLE SODIUM 40 MG VIAL IV SCH (09:46)
[2017-10-24] MEDS: ENOXAPARIN SODIUM INJ 40 MG/0.4 ML DISP.SYRIN SUBCUT SCH (09:46)
[2017-10-24] MEDS ORDERED: MAGNESIUM OXIDE 400 MG TABLET PO ONE (11:15)
[2017-10-24] MEDS ORDERED: POTASSIUM CHLORIDE 10 MEQ TABLET.SA PO ONE (11:15)
[2017-10-24 12:50] VITALS: BP 156/82
--- NOTE | 2017-10-24 12:58 | DISCHARGE SUMMARY E ---
Discharge Summary NAME: CLIF TURNER : 1975 AGE: 42Y ADMITTED: 10/23/2017 DISCHARGED: 10/24/2017 CODE STATUS: FULL CODE. PRIMARY CARE PROVIDER: [facility]. DISCHARGE DIAGNOSES: 1. Chronic alcoholism, binge drinking pattern. 2. Hypomagnesemia secondary to #1. 3. Hypokalemia secondary to #2. 4. Acute renal failure due to dehydration. 5. Hypertension. 6. Metabolic acidosis secondary to #1. 7. Nausea and vomiting secondary to the above. 8. Hyperlipidemia. DISCHARGE MEDICATIONS: 1. Magnesium oxide 400 mg p.o. daily. 2. Aspirin 81 mg p.o. daily. 3. Robaxin 750 mg p.o. t.i.d. p.r.n. 4. Lisinopril 10 mg p.o. q.12 hours. 5. Voltaren 75 mg p.o. b.i.d. 6. Vitamin D3 at 1000 international units p.o. daily. 7. Coreg 3.125 mg p.o. q.12 hours. 8. Allopurinol 300 mg p.o. daily. DIET: As tolerated. Avoid alcohol. ACTIVITY: As tolerated. DIAGNOSTICS: Lab values are as follows: Hematology obtained on 10/23/2017: WBCs are 8.1, hemoglobin is 40.0, hematocrit is 40.1, platelet count is 185,000. Chemistry obtained on 10/24/2017: Sodium 137, potassium 3.3, chloride is 102, carbon dioxide 28, BUN 12, creatinine is 0.88, glucose 106, corrected calcium of 7.7, magnesium is 1.4, total bilirubin is 1.1, AST 34, ALT is 23, alk phos 105, troponin is 0.012, total protein 9.7, albumin 5.4, lipase is 60.7. Urinalysis obtained on 10/22/2017: Color yellow, appearance cloudy, pH 5.0, specific gravity 1.022, protein greater than 500, glucose 50, ketones negative, occult blood small, nitrate negative, bilirubin negative, urobilinogen negative, leukocyte esterase negative, WBC 8, RBC 1, casts 61, bacteria trace. Toxicology obtained on 10/22/2017: Serum alcohol of 49. EKG obtained on 10/22/2017 reveals sinus tachycardia. EKG obtained on 10/23/2017 reveals sinus rhythm. PHYSICAL EXAMINATION: GENERAL: On examination, the patient is a well-developed, well-nourished, 42-year-old male who is awake, alert, and oriented to person, place, time, and situation. He is verbal, conversational, ambulatory, and does not appear to be in any acute distress. VITAL SIGNS: Temperature 98.1, pulse 79, respirations 18, blood pressure 112/70, oxygen saturation is 100% on room air. SKIN: Warm and dry. No rash. He is not diaphoretic. HEENT: Pupils equal, round, reactive to light and accommodation. Conjunctivae are pink. No JVP. CARDIOVASCULAR: Heart is regular with no murmur or rub. CHEST: Clear, symmetrical, unlabored. ABDOMEN: Soft, nontender, nondistended. BACK: No CVA tenderness or sacral edema. EXTREMITIES: No clubbing, cyanosis, or edema. PSYCHIATRIC: Appropriate affect. Pleasant mood. HISTORY OF PRESENT ILLNESS: The patient is a 42-year-old male who is known to myself. The patient presented to the emergency department with a chief complaint of nausea and vomiting. The patient gives a history of 24 hours of nausea and vomiting which was preceded by binge drinking of a half gallon of vodka over 3 days. The patient complained of chest discomfort described as burning related to his oral intake that began following numerous episodes of emesis. The patient reported that he no longer was tolerating fluids and was complaining of persistent hiccups. The patient has been admitted for the same presentation in the past; however, he was previously referred to [facility] but did not follow up. Upon presentation to the emergency department, the patient had a white count of 10.9, a potassium of 2.0, magnesium of 0.9, serum alcohol of 49 with a gap acidosis of 35. The patient was referred to the hospitalist for admission and management. HOSPITAL COURSE: The patient was admitted to [facility]. The patient was repleted with magnesium followed by potassium. The patient was also noted to have prerenal azotemia which corrected nicely with volume resuscitation. The patient did require numerous bags of IV electrolyte supplementation. The patient was also noted to be hypocalcemic, however, with albumin added this did correct out to 7.7. The patient has been referred in the past for outpatient alcohol treatment as the patient has refused to go to inpatient rehab. The patient states that he is interested in it again at this time and will speak to social work. I have explained to the patient the need for magnesium supplementation if he insists on drinking. The patient is aware of this and is ready for discharge. DISCHARGE PLANNIN. The patient is advised to followup with a primary care provider within 1-2 weeks for hospital followup. 2. The patient will benefit from repeat BMP as well as magnesium to ensure he does not require further oral supplementation. Time spent on this discharge including assessment, plan, physical examination, patient education, and resource alignment is 35 minutes. DICTATING PHYSICIAN: JON TRAVIS NP [id number] PHY#: [id number] ID: [id number] JOB#: [id number] ACCT: [id number] cc:JON TRAVIS NP > MTDD
== END 2017-10-24 13:43 | disposition home or self-care (01) | DRG 897 ==
LOC: ER 12:12 → OBSVTOIN 15:15 → EH 15:15 → INTOOBSV 15:15 → 3N 19:39 → OBSVTOIN 10-23 12:28
PROVIDERS: ADMIT Internal Medicine; ATTEND Internal Medicine
PROC: 3E0F73Z Introduction of Anti-inflammatory into Respiratory Tract, Via Natural or Artificial Opening (ICD-10-PCS; principal; 2017-10-23)
DX: F10.239 Alcohol dependence with withdrawal, unspecified (principal); N17.9 Acute kidney failure, unspecified; E87.2 Acidosis; F10.229 Alcohol dependence with intoxication, unspecified; E87.6 Hypokalemia; E83.42 Hypomagnesemia; K29.20 Alcoholic gastritis without bleeding; Y90.2 Blood alcohol level of 40-59 mg/100 ml; E86.0 Dehydration; I10 Essential (primary) hypertension; E78.5 Hyperlipidemia, unspecified; E83.51 Hypocalcemia; G43.909 Migraine, unspecified, not intractable, without status migrainosus; E11.9 Type 2 diabetes mellitus without complications; K21.9 Gastro-esophageal reflux disease without esophagitis; M10.9 Gout, unspecified; F32.9 Major depressive disorder, single episode, unspecified; K58.9 Irritable bowel syndrome, unspecified; R00.0 Tachycardia, unspecified; Z79.82 Long term (current) use of aspirin; Z79.4 Long term (current) use of insulin; Z79.899 Other long term (current) drug therapy; Z82.61 Family history of arthritis; Z83.3 Family history of diabetes mellitus; Z82.49 Family history of ischemic heart disease and other diseases of the circulatory system
CPT/HCPCS: 36415; 80048; 80053; 80307; 81001; 82040; 82962; 83690; 83735; 84484; 85025; 93005; 93010; 99285; J1650; J2060; J3475; J3480; J3490; J7030; S0164

== ENCOUNTER 2017-10-30 04:16 | Emergency (ER) | payer OTHER ==
--- NOTE | 2017-10-30 04:31 | ER Document Report ---
Addendum entered and electronically signed by SHADY VEGA MA 10/30/17 10:23 : Discharge - Discharge Clinical Impression: Somnolence, ETOH abuse Medication overdose Qualifiers: Encounter type: initial encounter Injury intent: undetermined intent Qualified Code(s): T50.904A - Poisoning by unspecified drugs, medicaments and biological substances, undetermined, initial encounter Condition: Stable Disposition: HOME, SELF-CARE Additional Instructions: Your workup shows low magnesium, this was replaced, your monitoring, workup, and evaluation do not show any other concerning abnormalities. Take your medications including magnesium supplement. Do not take any medications that are not prescribed to you. Do not take above prescribed or recommended doses. Return for any concerning symptoms including fever, seizure, or any other concerning symptoms. CHRONIC ALCOHOLISM and ALCOHOL ABUSE: Your evaluation reveals evidence of chronic alcoholism, an addiction to alcohol. The tendency to alcoholism may be inherited. Chronic use of alcohol weakens muscles, causes fatty deposits in the liver , damages the stomach, makes you more prone to infections, and can cause defects in unborn children. In the long run, brain atrophy and cirrhosis of the liver result. You are also at greater risk for certain types of cancer, such as cancer of the mouth, throat, stomach, and liver. Counselling services are available to help you. In-hospital treatment programs often help. Support groups such as Alcoholics Anonymous can be very useful in beating this addiction. Your physician can make a referral for you. As alcoholics often are prone to other addictions, you should discuss your use of any other medications with the doctor. FOLLOW-UP CARE: Provider confirmed follow up appointment at [facility] for Sunday11/02/2017 at 9:40am. If you have been referred to a physician for follow-up care, call the physician s office for an appointment as you were instructed or within the next two days. If you experience worsening or a significant change in your symptoms, notify the physician immediately or return to the Emergency Department at any time for re-evaluation. Referrals: [facility] [Provider Group] - 11/02/17 9:40 am Original Note: ED General - General TRAVEL OUTSIDE OF THE [place] IN LAST 30 DAYS: No <LAURIE BLAIR - Last Filed: 10/30/17 07:05> <SHADY VEGA - Last Filed: 10/30/17 10:20> <DIDI KEY - Last Filed: 10/30/17 10:44> - General Chief Complaint: Probable Seizure Stated Complaint: POSSIBLE SEIZURE Time Seen by Provider: 10/30/17 04:21 Notes: Patient is a 42-year-old male comes to the emergency department by EMS for chief complaint of seizures. EMS states that they were called out to the house twice, the first time patient stated he was fine and declined coming, EMS states that 30 minutes later they were called by his ex- who lives with him and she states that he had had 5 seizures since the left. EMS states the patient was unchanged in appearance when they came back. Patient declines any complaints including headaches, nausea, vomiting, fever, or any other complaints. He states he does not know why he is here. He denies taking anything out of the ordinary other than a Robaxin last night. Past medical history of hypertension, GERD, alcoholism, withdrawal seizures. Patient states he has never had a seizure outside of withdrawing from alcohol. He states his last drink of alcohol was 2 weeks ago. (LAURIE BLAIR) - Related Data Allergies/Adverse Reactions: No Known Allergies Allergy (Verified 09/10/17 12:35) Past Medical History - General Information source: Patient - Social History Smoking Status: Never Smoker Frequency of alcohol use: None Drug Abuse: None Lives with: Family Family History: Arthritis, DM, Hyperlipidemia, Hypertension - Past Medical History Cardiac Medical History: Reports: Hx Hypercholesterolemia, Hx Hypertension Neurological Medical History: Reports: Hx Migraine, Hx Seizures - EtOH withdrawal Endocrine Medical History: Reports: Hx Diabetes Mellitus Type 2 - Insulin- dependent Renal/ Medical History: Reports: Hx Renal Insufficiency. Denies: Hx Peritoneal Dialysis GI Medical History: Reports: Hx Gastroesophageal Reflux Disease, Hx Irritable Bowel Musculoskeltal Medical History: Reports Hx Arthritis, Reports Hx Gout, Reports Hx Musculoskeletal Deformity, Reports Hx Musculoskeletal Trauma Psychiatric Medical History: Reports: Hx Depression Past Surgical History: Reports: Hx Orthopedic Surgery - Rt knee - Immunizations Hx Diphtheria, Pertussis, Tetanus Vaccination: No Hx Pneumococcal Vaccination: 06/13/14 <LAURIE BLAIR - Last Filed: 10/30/17 07:05> Review of Systems - Review of Systems Constitutional: No symptoms reported EENT: No symptoms reported Cardiovascular: No symptoms reported Respiratory: No symptoms reported Gastrointestinal: No symptoms reported Genitourinary: No symptoms reported Male Genitourinary: No symptoms reported Musculoskeletal: No symptoms reported Skin: No symptoms reported Hematologic/Lymphatic: No symptoms reported Neurological/Psychological: See HPI <LAURIE BLAIR - Last Filed: 10/30/17 07:05> Physical Exam - Vital signs Interpretation: Normal - General General appearance: Other - sleeping but easily aroused In distress: None - HEENT Head: Normocephalic, Atraumatic. No: Abrasions, Open wounds, Tenderness Eyes: Normal Conjunctiva: Normal Extraocular movements intact: Yes Eyelashes: Normal Pupils: PERRL Mouth/Lips: Normal Mucous membranes: Normal Pharynx: Normal Neck: Normal - Respiratory Respiratory status: No respiratory distress Chest status: Nontender Breath sounds: Normal. No: Decreased air movement, Wheezing Chest palpation: Normal - Cardiovascular Rhythm: Regular. No: Tachycardia Heart sounds: Normal auscultation, S1 appreciated, S2 appreciated Murmur: No - Abdominal Inspection: Normal Distension: No distension Bowel sounds: Normal Tenderness: Nontender. No: Tender, Guarding Organomegaly: No organomegaly - Back Back: Normal, Nontender. No: Vertebra tenderness - Extremities General upper extremity: Normal inspection, Nontender, Normal strength, Normal temperature General lower extremity: Normal inspection, Nontender, Normal strength, Normal temperature - Neurological Neuro grossly intact: Yes Cognition: Normal Orientation: AAOx4 [place] Coma Scale Eye Opening: Spontaneous [place] Coma Scale Verbal: Oriented [place] Coma Scale Motor: Obeys Commands [place] Coma Scale Total: 15 Speech: Normal Cranial nerves: Normal Cerebellar coordination: Normal Motor strength normal: LUE, RUE, LLE, RLE Additional motor exam normals: Equal director social welfare Sensory: Normal - Psychological Associated symptoms: Normal affect, Normal mood - Skin Skin Temperature: Warm Skin Moisture: Dry Skin Color: Normal <LAURIE BLAIR - Last Filed: 10/30/17 07:05> - Vital signs Vitals: BP Pulse Ox 147/93 H 95 10/30/17 04:23 10/30/17 04:23 Course - Laboratory Result Diagrams: 10/30/17 04:45 10/30/17 04:45 <LAURIE BLAIR - Last Filed: 10/30/17 07:05> <SHADY VEGA - Last Filed: 10/30/17 10:20> - Laboratory Result Diagrams: 10/30/17 04:45 10/30/17 04:45 <DIDI KEY - Last Filed: 10/30/17 10:44> - Re-evaluation Re-evalutation: Patient mildly drowsy but he is actually alert, oriented, cooperative, answers all questions correctly and appropriately. He denies any complaints. Normal neurological exam. Soft abdomen, clear lungs, unremarkable vital signs. CBC unremarkable, magnesium is slightly low at 1.4, potassium at 3.4, chemistry otherwise unremarkable. Urine unremarkable. UDS shows benzodiazepines. Supposedly patient had 5 seizures after EMS left the house the first time, he was not postictal or changed whatsoever on reexamination, he has no signs of trauma, he has no complaints. He states he has never had a seizure except for when he is withdrawing from alcohol, his alcohol is negative, he is not tachycardic, tremulous, or having any other indications of withdrawals. If he does indeed have benzodiazepines in his system he is even less likely to have had a seizure tonight. I do not think he had a seizure tonight based on his examination. He is asking to go home. Denies SI or HI. Magnesium replacement given, he is already prescribed magnesium to be taken at home, patient is to follow-up with his primary provider and return for any concerning symptoms which may develop. Patient states understanding and agreement. Patient stating he is trying to get a mild headache, will receive medication for this while he is finishing the magnesium. 10/30/17 06:45 Patient called me back in the room, he states that he actually took about 15 Robaxin tablets, believes it was 500 mg, patient states he took this around 7-8 PM, states that he was not trying to kill himself, he has never tried to kill himself, but he was feeling "down" he feels like he needs to talk to psychiatry for this. He denies homicidal ideations as well. He states he has never been hospitalized in a psychiatric institution. He states that he is not been particularly depressed but he feels like he needs to talk through some things and he wants to talk to a psychiatrist. Consult placed. EKG with no significant change from prior. Spoke with Walter at poison control, based on the duration since he took the medications no current concerns exist. No additional recommendations. (LAURIE BLAIR) - Vital Signs Vital signs: Temp Pulse Resp BP Pulse Ox 97.9 F 12 136/88 H 99 10/30/17 10:38 10/30/17 10:00 10/30/17 09:01 10/30/17 10:00 - Laboratory Laboratory results interpreted by me: 10/30/17 10/30/17 10/30/17 04:45 04:45 04:45 RBC 4.08 L Hgb 11.6 L Hct 34.2 L RDW 16.9 H Potassium 3.4 L BUN 5 L Glucose 121 H Magnesium 1.4 L Direct Bilirubin 0.6 H Urine Bilirubin Salicylates < 1.0 L Acetaminophen < 10 L 10/30/17 04:55 RBC Hgb Hct RDW Potassium BUN Glucose Magnesium Direct Bilirubin Urine Bilirubin SMALL H Salicylates Acetaminophen Discharge <LAURIE BLAIR - Last Filed: 10/30/17 07:05> <SHADY VEGA - Last Filed: 10/30/17 10:20> <DIDI KEY - Last Filed: 10/30/17 10:44> - Discharge Clinical Impression: Somnolence, ETOH abuse Medication overdose Qualifiers: Encounter type: initial encounter Injury intent: undetermined intent Qualified Code(s): T50.904A - Poisoning by unspecified drugs, medicaments and biological substances, undetermined, initial encounter Condition: Stable Disposition: HOME, SELF-CARE Additional Instructions: Your workup shows low magnesium, this was replaced, your monitoring, workup, and evaluation do not show any other concerning abnormalities. Take your medications including magnesium supplement. Do not take any medications that are not prescribed to you. Do not take above prescribed or recommended doses. Return for any concerning symptoms including fever, seizure, or any other concerning symptoms. CHRONIC ALCOHOLISM and ALCOHOL ABUSE: Your evaluation reveals evidence of chronic alcoholism, an addiction to alcohol. The tendency to alcoholism may be inherited. Chronic use of alcohol weakens muscles, causes fatty deposits in the liver , damages the stomach, makes you more prone to infections, and can cause defects in unborn children. In the long run, brain atrophy and cirrhosis of the liver result. You are also at greater risk for certain types of cancer, such as cancer of the mouth, throat, stomach, and liver. Counselling services are available to help you. In-hospital treatment programs often help. Support groups such as Alcoholics Anonymous can be very useful in beating this addiction. Your physician can make a referral for you. As alcoholics often are prone to other addictions, you should discuss your use of any other medications with the doctor. FOLLOW-UP CARE: Provider confirmed follow up appointment at [facility] for Sunday11/02/2017 at 9:40am. If you have been referred to a physician for follow-up care, call the physician s office for an appointment as you were instructed or within the next two days. If you experience worsening or a significant change in your symptoms, notify the physician immediately or return to the Emergency Department at any time for re-evaluation. Referrals: [facility] [Provider Group] - 11/02/17 9:40 am
[2017-10-30 05:20] LABS: ALANINE AMINOTRANSFERASE 38 U/L (21-72); ALBUMIN 3.8 g/dL (3.5-5.0); ALKALINE PHOSPHATASE 77 U/L (38-126); ANION GAP 12 (5-19); ASPARTATE AMINO TRANSFERASE 44 U/L (17-59); BILIRUBIN,DIRECT 0.6 mg/dL (0.0-0.4); BILIRUBIN,TOTAL 0.6 mg/dL (0.2-1.3); BLOOD UREA NITROGEN 5 mg/dL (7-20); CALCIUM 8.9 mg/dL (8.4-10.2); CARBON DIOXIDE 28 mmol/L (22-30); CHLORIDE 104 mmol/L (98-107); CREATININE RESULT 0.74 mg/dL (0.52-1.25); GLUCOSE 121 mg/dL (75-110); MAGNESIUM 1.4 mg/dL (1.6-2.3); POTASSIUM 3.4 mmol/L (3.6-5.0); SODIUM 144.1 mmol/L (137-145); TOTAL PROTEIN 6.8 g/dL (6.3-8.2)
[2017-10-30 05:21] LABS: ABSOLUTE EOSINOPHILS # (AUTO) 0.2 10^3/uL (0.0-0.6); ABSOLUTE LYMPHOCYTES (AUTO) 2.1 10^3/uL (0.5-4.7); ABSOLUTE MONOCYTES (AUTO) 0.6 10^3/uL (0.1-1.4); ABSOLUTE NEUT (AUTO) 3.3 10^3/uL (1.7-8.2); BASOPHILS % (AUTO) 0.8 % (0-2); EOSINOPHILS % (AUTO) 3.8 % (0-6); HEMATOCRIT 34.2 % (37.9-51.0); HEMOGLOBIN 11.6 g/dL (13.5-17.0); HGB HCT DIFFERENCE 0.6; LYMPHOCYTES % (AUTO) 33.5 % (13-45); MEAN CORPUSCULAR HEMOGLOBIN 28.5 pg (27.0-33.4); MEAN CORPUSCULAR VOLUME 84 fl (80-97); MONOCYTES % (AUTO) 9.5 % (3-13); RED BLOOD COUNT 4.08 10^6/uL (4.35-5.55); RED CELL DISTRIBUTION WIDTH 16.9 % (11.5-14.0); SEGMENTED NEUTROPHILS % (AUTO) 52.4 % (42-78); WHITE BLOOD COUNT 6.3 10^3/uL (4.0-10.5)
[2017-10-30 05:22] LABS: ALCOHOL < 10 mg/dL (NONE DETECTED)
[2017-10-30 05:37] LABS: APPEARANCE,URINE CLEAR; BILIRUBIN,URINE SMALL (NEGATIVE); GLUCOSE, URINE NEGATIVE (NEGATIVE); KETONES,URINE NEGATIVE (NEGATIVE); LEUKOCYTE ESTERASE,URINE NEGATIVE (NEGATIVE); NITRITE,URINE NEGATIVE (NEGATIVE); PROTEIN,URINE NEGATIVE (NEGATIVE); URINE SPECIFIC GRAVITY 1.014; UROBILINOGEN,URINE NEGATIVE mg/dL (<2.0)
[2017-10-30 05:39] LABS: URINE BARBITURATES SCREEN NEGATIVE; URINE METHADONE SCREEN NEGATIVE; URINE OPIATES LOW NEGATIVE; URINE PHENCYCLIDINE SCREEN NEGATIVE
[2017-10-30] MEDS ORDERED: KETOROLAC TROMETHAMINE INJ/PF 30 MG/1 ML SDV IV ONE (06:00)
[2017-10-30] MEDS ORDERED: ONDANSETRON HCL INJ/PF 4 MG/2 ML SDV IV ONE (06:00)
[2017-10-30] MEDS: MAGNESIUM SULFATE/D5W 1 GM/100 ML RTUPB IV SCH ×2 (06:19→06:56)
--- NOTE | 2017-10-30 08:08 | EKG REPORT ---
SEVERITY:- ABNORMAL ECG - SINUS RHYTHM NONSPECIFIC INTRAVENTRICULAR CONDUCTION DELAY ST DEPRESSION, CONSIDER ISCHEMIA, ANT-LAT LDS PRE-EXCITATION . : Confirmed by: Felipe Khan MD 30-Oct-2017 08:07:43
[2017-10-30] MEDS ORDERED: METFORMIN HCL 500 MG TABLET PO ONE (10:11)
[2017-10-30] MEDS ORDERED: ACETAMINOPHEN 325 MG TABLET PO ONE (10:12)
--- NOTE | 2017-10-30 10:13 | ER Document Report ---
Doctor's Note Notes: 10/30/17 10:09 Rounds: Chart reviewed and patient interviewed. Patient says he has no intentions of harming himself when he took the excess Robaxin last night. He says he took about 15 or 20, trying to get to sleep. Patient has a history of seizure disorder which apparently may be withdrawal seizures. He has been on medications in the past, but [facility]. His last seizure prior to last night was about 3 years ago. His last alcohol was about 2 weeks ago. Labs were essentially normal., Potassium 3.4, UDS positive for benzos. Vital signs are normal. Patient appears to be medically stable for transfer or discharge. Lv Ruiz MD
[2017-10-30 10:44] VITALS: BP 124/79
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
== END 2017-10-30 10:49 | disposition home or self-care (01) ==
LOC: ER 04:16
DX: T50.904A Poisoning by unspecified drugs, medicaments and biological substances, undetermined, initial encounter (principal); R40.0 Somnolence; F10.10 Alcohol abuse, uncomplicated; R56.9 Unspecified convulsions
CPT/HCPCS: 93005; 99284; 96375; 96365; 36415; 80307 ×4; 83735; 85025; 80053; 81001; 93010; J1885; J3475; J2405

== ENCOUNTER 2017-12-30 18:17 | Emergency (ER) | payer OTHER ==
[2017-12-30] MEDS ORDERED: NORMAL SALINE 1000 ML 1,000 ML IV ONE (19:01)
--- NOTE | 2017-12-30 19:37 | ER Document Report ---
ED Medical Screen (RME) - General Chief Complaint: ETOH Abuse Stated Complaint: NAUSEA Time Seen by Provider: 12/30/17 19:00 Mode of Arrival: Medic Information source: Patient Notes: 42-year-old male who is been binge drinking for 36 hours presents with complaint of nausea vomiting I have greeted and performed a rapid initial assessment of this patient. A comprehensive ED assessment and evaluation of the patient, analysis of test results and completion of the medical decision making process will be conducted by additional ED providers. PHYSICAL EXAMINATION: GENERAL: Well-appearing, well-nourished and in no acute distress. HEAD: Atraumatic, normocephalic. EYES: Pupils equal round extraocular movements intact, conjunctiva are normal. ENT: Nares patent NECK: Normal range of motion LUNGS: No respiratory distress Musculoskeletal: Normal range of motion NEUROLOGICAL: Normal speech, normal gait. PSYCH: Normal mood, normal affect. SKIN: Warm, Dry, normal turgor, no rashes or lesions noted. TRAVEL OUTSIDE OF THE [place] IN LAST 30 DAYS: No - Related Data Allergies/Adverse Reactions: No Known Allergies Allergy (Verified 09/10/17 12:35) Past Medical History - Social History Chew tobacco use (# tins/day): No Frequency of alcohol use: binge several weekends a month Drug Abuse: None - Past Medical History Cardiac Medical History: Reports: Hx Hypercholesterolemia, Hx Hypertension Neurological Medical History: Reports: Hx Migraine, Hx Seizures - EtOH withdrawal Endocrine Medical History: Reports: Hx Diabetes Mellitus Type 2 - Insulin- dependent Renal/ Medical History: Reports: Hx Renal Insufficiency. Denies: Hx Peritoneal Dialysis GI Medical History: Reports: Hx Gastroesophageal Reflux Disease, Hx Irritable Bowel Musculoskeltal Medical History: Reports Hx Arthritis, Reports Hx Gout, Reports Hx Musculoskeletal Deformity, Reports Hx Musculoskeletal Trauma Psychiatric Medical History: Reports: Hx Depression Past Surgical History: Reports: Hx Orthopedic Surgery - Rt knee - Immunizations Hx Diphtheria, Pertussis, Tetanus Vaccination: No History of Influenza Vaccine for 08/2017 - 01/2018 Season: Yes Influenza Administration Date for 08/2017 - 01/2018 Season: 09/16/17 Physical Exam - Vital signs Vitals: Temp Pulse Resp BP Pulse Ox 98.9 F 131 H 18 147/118 H 96 12/30/17 18:28 12/30/17 18:28 12/30/17 18:28 12/30/17 18:28 12/30/17 18:28 Course - Vital Signs Vital signs: Temp Pulse Resp BP Pulse Ox 98.9 F 131 H 18 147/118 H 96 12/30/17 18:28 12/30/17 18:28 18 18:55 12/30/17 18:28 12/30/17 18:28
[2017-12-30 20:20] LABS: ALANINE AMINOTRANSFERASE 25 U/L (21-72); ALBUMIN 5.2 g/dL (3.5-5.0); ALCOHOL 120 mg/dL (NONE DETECTED); ALKALINE PHOSPHATASE 102 U/L (38-126); ASPARTATE AMINO TRANSFERASE 45 U/L (17-59); BILIRUBIN,DIRECT 0.5 mg/dL (0.0-0.4); BILIRUBIN,TOTAL 0.7 mg/dL (0.2-1.3); BLOOD UREA NITROGEN 13 mg/dL (7-20); CALCIUM 10.8 mg/dL (8.4-10.2); CARBON DIOXIDE 26 mmol/L (22-30); CHLORIDE 93 mmol/L (98-107); GLUCOSE 133 mg/dL (75-110); POTASSIUM 3.2 mmol/L (3.6-5.0); SODIUM 144.5 mmol/L (137-145); TOTAL PROTEIN 9.1 g/dL (6.3-8.2)
[2017-12-30 20:22] LABS: ABSOLUTE BASOPHILS # (AUTO) 0.1 10^3/uL (0.0-0.2); ABSOLUTE EOSINOPHILS # (AUTO) 0.1 10^3/uL (0.0-0.6); ABSOLUTE LYMPHOCYTES (AUTO) 2.7 10^3/uL (0.5-4.7); ABSOLUTE NEUT (AUTO) 3.6 10^3/uL (1.7-8.2); BASOPHILS % (AUTO) 0.9 % (0-2); EOSINOPHILS % (AUTO) 1.3 % (0-6); HEMOGLOBIN 16.4 g/dL (13.5-17.0); LYMPHOCYTES % (AUTO) 35.5 % (13-45); MEAN CORPUSCULAR HEMOGLOBIN 27.1 pg (27.0-33.4); MEAN CORPUSCULAR HGB CONC 33.5 g/dL (32.0-36.0); MEAN CORPUSCULAR VOLUME 81 fl (80-97); PLATELET COUNT 317 10^3/uL (150-450); RED BLOOD COUNT 6.07 10^6/uL (4.35-5.55); RED CELL DISTRIBUTION WIDTH 17.2 % (11.5-14.0); SEGMENTED NEUTROPHILS % (AUTO) 48.3 % (42-78); TOTAL CELLS COUNTED % (AUTO) 100 %; WHITE BLOOD COUNT 7.5 10^3/uL (4.0-10.5)
[2017-12-30 20:28] LABS: URINE AMPHETAMINES SCREEN NEGATIVE; URINE BARBITURATES SCREEN NEGATIVE; URINE BENZODIAZEPINES SCREEN NEGATIVE; URINE COCAINE SCREEN NEGATIVE; URINE MARIJUANA (THC) SCREEN NEGATIVE; URINE METHADONE SCREEN NEGATIVE; URINE PHENCYCLIDINE SCREEN NEGATIVE
[2017-12-30 20:37] LABS: LIPASE 42.8 U/L (23-300)
[2017-12-30 20:40] LABS: ANION GAP 26 (5-19)
[2017-12-30] MEDS ORDERED: PROMETHAZINE HCL INJ 25 MG/1 ML VIAL IM ONE (23:41)
[2017-12-30] MEDS ORDERED: RINGERS SOLUTION,LACTATED 1,000 ML IV ONE (23:41)
[2017-12-30] MEDS ORDERED: LIDOCAINE 2% VISCOUS SOLN 20 ML UDCUP PO ONE (23:42)
[2017-12-30] MEDS ORDERED: MAG HYDROX/AL HYDROX/SIMETH SUSP 30 ML UDCUP PO ONE (23:42)
[2017-12-30] MEDS ORDERED: METOCLOPRAMIDE HCL ORAL SOLN 10 MG/10 ML UDCUP PO ONE (23:42)
[2017-12-30] MEDS ORDERED: LORAZEPAM INJ 2 MG/1 ML VIAL IV ONE (23:46)
--- NOTE | 2017-12-30 23:47 | ER Document Report ---
ED General - General Chief Complaint: ETOH Abuse Stated Complaint: NAUSEA Time Seen by Provider: 12/30/17 19:00 Mode of Arrival: Medic Notes: Patient is a 42-year-old male with a history of binge drinking alcohol abuse. Patient says drinks once a month and usually drinks for several days heavily and then stops. He says [facility] Patient's is adamant that he only drinks once a month. Patient denies any history of withdrawal. Patient says that he has been vomiting the last 2 days. He spent says he has been unable to keep anything down. He has no other complaints at this time. TRAVEL OUTSIDE OF THE [place] IN LAST 30 DAYS: No - Related Data Allergies/Adverse Reactions: No Known Allergies Allergy (Verified 09/10/17 12:35) Past Medical History - General Information source: Patient - Social History Smoking Status: Never Smoker Chew tobacco use (# tins/day): No Frequency of alcohol use: binge several weekends a month Drug Abuse: None Family History: Arthritis, DM, Hyperlipidemia, Hypertension Patient has suicidal ideation: No Patient has homicidal ideation: No - Past Medical History Cardiac Medical History: Reports: Hx Hypercholesterolemia, Hx Hypertension Neurological Medical History: Reports: Hx Migraine, Hx Seizures - EtOH withdrawal Endocrine Medical History: Reports: Hx Diabetes Mellitus Type 2 - Insulin- dependent Renal/ Medical History: Reports: Hx Renal Insufficiency. Denies: Hx Peritoneal Dialysis GI Medical History: Reports: Hx Gastroesophageal Reflux Disease, Hx Irritable Bowel Musculoskeltal Medical History: Reports Hx Arthritis, Reports Hx Gout, Reports Hx Musculoskeletal Deformity, Reports Hx Musculoskeletal Trauma Psychiatric Medical History: Reports: Hx Depression Past Surgical History: Reports: Hx Orthopedic Surgery - Rt knee - Immunizations Hx Diphtheria, Pertussis, Tetanus Vaccination: No Hx Pneumococcal Vaccination: 06/13/14 Review of Systems - Review of Systems Notes: My Normal Review Basic REVIEW OF SYSTEMS: CONSTITUTIONAL : Denies fever, chills, or sweats. Denies recent illness. EENT: Denies eye, ear, throat, or mouth pain or symptoms. Denies nasal or sinus congestion. CARDIOVASCULAR: Denies chest pain. RESPIRATORY: Denies cough, cold, or chest congestion. Denies shortness of breath, difficulty breathing, or wheezing. GASTROINTESTINAL: Recurrent vomiting. GENITOURINARY: Denies difficulty urinating, painful urination, burning, frequency, or blood in urine. FEMALE GENITOURINARY: Denies vaginal bleeding, abnormal or irregular periods. LMP: MUSCULOSKELETAL: Denies neck or back pain or joint pain or swelling. SKIN: Denies rash or skin lesions. NEUROLOGICAL: Denies altered mental status or loss of consciousness. Denies headache. Denies weakness or paralysis or loss of use of either side. Denies problems with gait or speech. Denies sensory or motor loss. ALL OTHER SYSTEMS REVIEWED AND NEGATIVE. Physical Exam - Vital signs Vitals: Temp Pulse Resp BP Pulse Ox 98.9 F 131 H 18 147/118 H 96 12/30/17 18:28 18 18:28 12/30/17 18:28 12/30/17 18:28 12/30/17 18:28 - Notes Notes: General Appearance: Well nourished, alert, cooperative, no acute distress, no obvious discomfort. Vitals: reviewed, See vital signs table. Head: no swelling or tenderness to the head Eyes: PERRL, EOMI, Conjuctiva clear Mouth: No decreasd moisture Throat: No tonsillar inflammation, No airway obstruction, No lymphadenopathy Neck: Supple, no neck tenderness, No thyromegaly Lungs: No wheezing, No rales, No rhonci, No accessory muscle use, good air exchange bilaterally. Heart: Tachycardic rate, Regular rythm, No murmur, no rub Abdomen: Normal BS, soft, No rigidity, mild epigastric abdominal tenderness to palpation, No guarding, no rebound, no abdominal masses, no organomegaly Extremities: strength 5/5 in all extremities, good pulses in all extremities, no swelling or tenderness in the extremities, no edema. Skin: warm, dry, appropriate color, no rash Neuro: speech clear, oriented x 3, normal affect, responds appropriately to questions. Cranial nerves II through XII are intact. Distal sensation intact. Patient has no tremor on exam. She moves all extremities without difficulty. Course - Re-evaluation Re-evalutation: 12/30/17 23:46 Patient says he binge drinks just once a month however looking through his records he has been admitted several times. Into the time she was admitted because of seizures from alcohol withdrawal. Suspect he probably drinks little bit more than once a month as although it is not impossible, it would be rare for someone to have seizure from alcohol withdrawal from just drinking once a month. I have ordered more IV fluids. His heart rate still sounds a little bit fast and auscultation. I will give him a little bit of Ativan as well due to his previous history of alcohol withdrawal. 12/31/17 02:05 Patient says his nausea is gone he has been eating some crackers and says he is feeling improved. His heart rate is down into the 90s. He is still receiving a magnesium IV. His blood pressure is high. Patient says he has not been taking his blood pressure medications because of the drinking over last several days. I will give him dosages of his blood pressure medication here. 12/31/17 02:36 12/31/17 03:02 Patient continues says he feels well. He is getting his last infusion magnesium. His heart rate is back up to about 107. He continues to deny having any history of withdrawal; however, looking through his previous records this is contrary to what I am reading. He is not currently having any tremor. I will place him on gabapentin to make sure that were covering against the possibility withdrawal. I will reassess him when his last bag of magnesium is completed. 12/31/17 03:54 On reevaluation patient's heart rate is in the 80s and 90s. He is feeling improved. He is received magnesium. He looks well. I feel he is safe to be discharged home. I will discharge him on tapering dose of gabapentin so I still expect that he does have the potential of alcohol withdrawal and and he has a history of previous alcohol withdrawal induced seizures despite him saying that he does not drink that often. I think he most likely drinks more often than what he says based on the fact that he was seen here several times in October for alcohol-related complaints. Patient has an upcoming [facility]. Encourage him to the appointment. I informed him to return to ER anytime if he has intractable vomiting, any tremors, any signs of withdrawal, feels unwell. Patient agrees with plan and will be discharged home. - Vital Signs Vital signs: Temp Pulse Resp BP Pulse Ox 98.9 F 97 14 144/113 H 97 12/30/17 18:28 12/31/17 02:03 12/31/17 02:39 12/31/17 02:39 12/31/17 02:39 - Laboratory Result Diagrams: 12/30/17 18:02 12/30/17 18:02 Laboratory results interpreted by me: 12/30/17 12/30/17 12/30/17 18:02 18:02 18:02 RBC 6.07 H RDW 17.2 H Monocytes % 14.0 H Potassium 3.2 L Chloride 93 L Anion Gap 26 H Glucose 133 H Calcium 10.8 H Magnesium 1.3 L Direct Bilirubin 0.5 H Total Protein 9.1 H Albumin 5.2 H Discharge - Discharge Clinical Impression: Epigastric abdominal pain, Alcohol abuse, Hypomagnesemia Vomiting Qualifiers: Vomiting type: unspecified Vomiting Intractability: non-intractable Nausea presence: with nausea Qualified Code(s): R11.2 - Nausea with vomiting, unspecified Hypertension Qualifiers: Hypertension type: unspecified Qualified Code(s): I10 - Essential (primary) hypertension Condition: Good Disposition: HOME, SELF-CARE Additional Instructions: Please try to avoid large amounts of alcohol. Please follow up closely with [facility] for [facility]uation in 2 days and to discuss further your referral to treatment for your alcohol use. Please take the gabapentin as prescribed as it will help prevent withdrawl symptoms. please return to the ER immediately if you develop seizures, tremors, recurrent vomiting, or feel unwell. Prescriptions: Gabapentin 400 mg PO ASDIR PRN #22 capsule PRN Reason: Omeprazole Magnesium [Prilosec Otc] 20 mg PO DAILY #30 tablet. Ondansetron [Zofran Odt 4 mg Tablet] 1 tab PO Q4H PRN #15 tab.rapdis PRN Reason: For Nausea/Vomiting Referrals: JUS DIOP MD [Primary Care Provider] - Follow up tomorrow
[2017-12-31] MEDS: MAGNESIUM SULFATE/D5W 1 GM/100 ML RTUPB IV SCH ×3 (01:40→04:16)
[2017-12-31] MEDS ORDERED: LISINOPRIL 10 MG TABLET PO ONE (02:06)
[2017-12-31] MEDS ORDERED: CARVEDILOL 3.125 MG TABLET PO ONE (02:06)
[2017-12-31] MEDS ORDERED: GABAPENTIN 400 MG CAPSULE PO ONE (03:01)
[2017-12-31] MEDS ORDERED: FOLIC ACID INJ 5 MG/1 ML 10 ML VIAL IV ONE (03:03)
[2017-12-31] MEDS ORDERED: THIAMINE HCL 100 MG in NORMAL SALINE 50 ML IV ONE (03:03)
[2017-12-31] MEDS ORDERED: THIAMINE HCL INJ 200 MG/2 ML VIAL ONE (03:56)
[2017-12-31] MEDS ORDERED: ONDANSETRON ODT 4 MG TAB (6 TAB/ER DISP) PO PRN (04:05)
[2017-12-31 05:44] VITALS: BP 127/68
== END 2017-12-31 05:39 | disposition home or self-care (01) ==
LOC: ER 18:17
DX: F10.10 Alcohol abuse, uncomplicated (principal); E83.42 Hypomagnesemia; R11.2 Nausea with vomiting, unspecified; R10.13 Epigastric pain; R00.0 Tachycardia, unspecified; I10 Essential (primary) hypertension; T46.5X6A Underdosing of other antihypertensive drugs, initial encounter; Z91.128 Patient's intentional underdosing of medication regimen for other reason; Z91.14 Patient's other noncompliance with medication regimen; E11.9 Type 2 diabetes mellitus without complications; Z79.4 Long term (current) use of insulin
CPT/HCPCS: 99284; 96372; 96361; 96375; 96365; 96366; 96367; 36415; 80307 ×2; 83690; 83735; 85025; 80053; J3490 ×2; J2060; J3475; J2550; J3411; J7030; J7120

== ENCOUNTER 2018-01-28 14:44 | Emergency (ER) | payer OTHER ==
--- NOTE | 2018-01-28 15:08 | ER Document Report ---
ED General - General Stated Complaint: ALTERED MENTAL STATUS Time Seen by Provider: 01/28/18 14:53 Notes: Patient was brought in due to altered mental status. 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 Patient does have a history of a seizure disorder, but I am not able to get anymore history from him than that at this time. He does not answer questions or follows commands. He does open his eyes when his name is called. Patient's came in and says she was at the place where this all took place and the patient had apparently locked himself in the restroom. The police had been called and they broke the door open and the patient was found sitting on the commode extremely diaphoretic. Seizure activity was not actually witnessed. However, the says that this behavior he is exhibiting at this time is very typical of his postictal phase. Patient's says that his seizures are felt to be secondary to alcohol. No history of head injury. Patient has been admitted here before, once for a one-week stay in ICU for seizures. Even after being treated and controlled and discharged on medications , the patient stopped taking his seizure medicines. TRAVEL OUTSIDE OF THE [place] IN LAST 30 DAYS: No - Related Data Allergies/Adverse Reactions: No Known Allergies Allergy (Verified 01/28/18 15:26) Past Medical History - Social History Smoking Status: Unknown if Ever Smoked Frequency of alcohol use: Heavy Family History: Reviewed & Not Pertinent, Arthritis, DM, Hyperlipidemia, Hypertension - Past Medical History Cardiac Medical History: Reports: Hx Hypercholesterolemia, Hx Hypertension Neurological Medical History: Reports: Hx Migraine, Hx Seizures - EtOH withdrawal Endocrine Medical History: Reports: Hx Diabetes Mellitus Type 1, Hx Diabetes Mellitus Type 2 - Insulin-dependent Renal/ Medical History: Reports: Hx Renal Insufficiency GI Medical History: Reports: Hx Gastroesophageal Reflux Disease, Hx Irritable Bowel Musculoskeltal Medical History: Reports Hx Arthritis, Reports Hx Gout, Reports Hx Musculoskeletal Deformity, Reports Hx Musculoskeletal Trauma Psychiatric Medical History: Reports: Hx Depression Past Surgical History: Reports: Hx Orthopedic Surgery - Rt knee - Immunizations Hx Diphtheria, Pertussis, Tetanus Vaccination: No Hx Pneumococcal Vaccination: 06/13/14 Review of Systems - Review of Systems Notes: provided some review of systems. Patient has not been sick recently. No fevers. No vomiting or diarrhea. No chest pain. No shortness of breath or difficulty breathing or cough or chest congestion. No UTI symptoms. -: Yes ROS unobtainable due to patient's medical condition Physical Exam - Vital signs Vitals: Resp BP Pulse Ox 16 145/106 H 99 01/28/18 15:01 01/28/18 15:01 01/28/18 15:01 Interpretation: Normal Notes: PHYSICAL EXAMINATION: GENERAL: Well-appearing, in no acute distress. Patient opens his eyes when I call his name, but does not answer questions today and does not follow commands. HEAD: Atraumatic, normocephalic. EYES: Pupils equal round and reactive to light, extraocular movements intact. ENT: oropharynx clear without exudates. Moist mucous membranes. NECK: Normal range of motion, supple. LUNGS: Breath sounds clear and equal bilaterally. HEART: Regular rate and rhythm without murmurs. ABDOMEN: Soft, nontender. No guarding or rebound. No masses. BACK: No tenderness throughout entire back. EXTREMITIES: Normal range of motion without pain. NEUROLOGICAL: Unable to assess initially. Normal sensory, motor, and reflex exams. Awake, alert, but not oriented. Cranial nerves normal. PSYCH: Normal mood, normal affect. SKIN: Warm, dry, no rashes. Course - Re-evaluation Re-evalutation: 01/28/18 21:20 Patient awakens easily when I enter the exam room. He knows what day it is and where he is, but does not remember anything that happened from the time he went to the place he volunteers until he was here in the emergency department. His came to the department and says that he is active like this before, almost always due to his having seizures. She said he has seizures, believed to be secondary to alcohol. No history of head injury. Patient has refused to take medications in the past. He has been admitted to this hospital for a week at a time in ICU. However, when he leaves the hospital, he refuses to take his medications. He now seems to be awake sufficiently to discharge him. With his here, the patient was agreeable to starting on antiseizure medication so he was given Keppra loading dose to 2000 mg IV and he will be discharged on Keppra 500 mg twice a day. I am not optimistic that he will take the medications as prescribed. 01/28/18 21:22 patient's even agrees that his neurologic status has just about return to his normal. Patient's blood alcohol here today was 42. - Vital Signs Vital signs: Temp Pulse Resp BP Pulse Ox 98 19 148/96 H 100 01/28/18 22:35 01/28/18 22:35 01/28/18 22:35 01/28/18 22:35 - Laboratory Result Diagrams: 01/28/18 15:09 01/28/18 15:09 Laboratory results interpreted by me: 01/28/18 01/28/18 15:09 15:09 RDW 18.4 H Sodium 145.6 H Potassium 3.4 L Glucose 130 H AST 64 H Creatine Kinase 255 H - EKG Interpretation by Me EKG shows normal: Sinus rhythm Rate: Normal Rhythm: NSR Additional EKG results interpreted by me: 01/28/18 21:[address] and T-wave changes across the precordium. No acute changes present. Discharge - Discharge Clinical Impression: Seizures Condition: Stable Disposition: HOME, SELF-CARE Additional Instructions: Seizure, Known Epileptic You have had a seizure. Seizures may "break through" in an epileptic due to stress of infection or injury, a change in blood chemistry, or drug and alcohol use. Another common cause is failure to take medication as prescribed. Your doctor has evaluated your situation for the likely cause of this seizure. It is important that you follow his advice concerning any medication changes and follow-up care. Further testing of anti-seizure medication levels in your blood may be necessary. If you have a refuse driver's license, it's important that you DO NOT DRIVE until given permission by your physician. This seizure must be reported to the refuse driver 's license bureau. Call the doctor or return if seizures recur, or if new or unusual symptoms arise -- such as severe headache, confusion, excessive sleepiness, local weakness or numbness, neck stiffness, or fever. You have been giving a loading dose of Keppra IV and a prescription for Keppra 500 mg twice a day. Follow-up with your primary care provider in the coming week. FOLLOW-UP CARE: If you have been referred to a physician for follow-up care, call the physician s office for an appointment as you were instructed or within the next two days. If you experience worsening or a significant change in your symptoms, notify the physician immediately or return to the Emergency Department at any time for re-evaluation. Prescriptions: Levetiracetam [Keppra 500 mg Tablet] 500 mg PO BID #60 tablet
[2018-01-28 15:33] LABS: ABSOLUTE EOSINOPHILS # (AUTO) 0.1 10^3/uL (0.0-0.6); ABSOLUTE LYMPHOCYTES (AUTO) 1.3 10^3/uL (0.5-4.7); ABSOLUTE MONOCYTES (AUTO) 0.4 10^3/uL (0.1-1.4); ABSOLUTE NEUT (AUTO) 3.6 10^3/uL (1.7-8.2); BASOPHILS % (AUTO) 0.8 % (0-2); HEMOGLOBIN 14.3 g/dL (13.5-17.0); LYMPHOCYTES % (AUTO) 24.1 % (13-45); MEAN CORPUSCULAR HEMOGLOBIN 27.8 pg (27.0-33.4); MEAN CORPUSCULAR HGB CONC 33.2 g/dL (32.0-36.0); MEAN CORPUSCULAR VOLUME 84 fl (80-97); MONOCYTES % (AUTO) 7.5 % (3-13); PLATELET COUNT 175 10^3/uL (150-450); RED BLOOD COUNT 5.13 10^6/uL (4.35-5.55); RED CELL DISTRIBUTION WIDTH 18.4 % (11.5-14.0); SEGMENTED NEUTROPHILS % (AUTO) 66.6 % (42-78); TOTAL CELLS COUNTED % (AUTO) 100 %; WHITE BLOOD COUNT 5.3 10^3/uL (4.0-10.5)
[2018-01-28 15:43] LABS: ALANINE AMINOTRANSFERASE 27 U/L (21-72); ALBUMIN 4.3 g/dL (3.5-5.0); ALKALINE PHOSPHATASE 74 U/L (38-126); ANION GAP 16 (5-19); ASPARTATE AMINO TRANSFERASE 64 U/L (17-59); BILIRUBIN,DIRECT 0.4 mg/dL (0.0-0.4); BILIRUBIN,TOTAL 0.6 mg/dL (0.2-1.3); BLOOD UREA NITROGEN 9 mg/dL (7-20); CALCIUM 9.1 mg/dL (8.4-10.2); CARBON DIOXIDE 23 mmol/L (22-30); CHLORIDE 107 mmol/L (98-107); CREATINE KINASE 255 U/L (55-170); GLUCOSE 130 mg/dL (75-110); POTASSIUM 3.4 mmol/L (3.6-5.0); SODIUM 145.6 mmol/L (137-145); TOTAL PROTEIN 7.5 g/dL (6.3-8.2)
[2018-01-28 15:56] LABS: TROPONIN I < 0.012 ng/mL
[2018-01-28] MEDS ORDERED: LORAZEPAM INJ 2 MG/1 ML VIAL IV ONE (16:19)
[2018-01-28] MEDS ORDERED: LEVETIRACETAM 500 MG/NACL-ISO 500 MG/100 ML RTUPB IV ONE (17:38)
[2018-01-28] MEDS ORDERED: LEVETIRACETAM 1500 MG/NACL-ISO 1,500 MG/100 ML RTUPB IV ONE (17:38)
[2018-01-28 19:48] LABS: APPEARANCE,URINE CLEAR; BILIRUBIN,URINE NEGATIVE (NEGATIVE); COLOR,URINE YELLOW; GLUCOSE, URINE NEGATIVE (NEGATIVE); KETONES,URINE NEGATIVE (NEGATIVE); LEUKOCYTE ESTERASE,URINE NEGATIVE (NEGATIVE); NITRITE,URINE NEGATIVE (NEGATIVE); PROTEIN,URINE NEGATIVE (NEGATIVE); URINE SPECIFIC GRAVITY 1.024; UROBILINOGEN,URINE NEGATIVE mg/dL (<2.0)
[2018-01-28 22:36] VITALS: BP 148/96
--- NOTE | 2018-01-28 23:51 | EKG REPORT ---
SEVERITY:- ABNORMAL ECG - SINUS RHYTHM VENT PREEXCITATION, LEFT ACCESSORY PATHWAY NONSPECIFIC ST-T CHANGES : Confirmed by: Murtaza Real 28-Jan-2018 23:51:00
== END 2018-01-28 22:36 | disposition home or self-care (01) ==
LOC: ER 14:44
DX: G40.909 Epilepsy, unspecified, not intractable, without status epilepticus (principal); T50.906A Underdosing of unspecified drugs, medicaments and biological substances, initial encounter; Z91.128 Patient's intentional underdosing of medication regimen for other reason; Z91.14 Patient's other noncompliance with medication regimen; E11.9 Type 2 diabetes mellitus without complications
CPT/HCPCS: 93005; 99285; 96375; 96365; 36415; 82553; 80307; 82550; 85025; 80053; 81001; 84484; 93010; J2060; J1953 ×2